=== PATIENT | male | born 1950 | race Hispanic/Latino ===

== ENCOUNTER → 2018-09-09 | Outpatient (CLI) | payer MEDICARE ==
[~2018-09-09] MED LIST: MULTIVITAMINS1 EAC7 PO; TAMSULOSIN HCL0.4 MG PO
--- NOTE | 2018-09-09 11:49 | Diagnostic Imaging Report ---
Exam: Abdominal film Clinical History: Calculus of kidney Comparison: None. DISCUSSION: Partially visualized ventriculoperitoneal shunt catheter terminates over the right upper quadrant of the abdomen. Bowel gas pattern shows no dilated, air-filled loops of bowel. No mass effect or organomegaly. Radiopaque catheter projects over the urinary bladder. There are multiple coarse pelvic calcifications which may reflect phleboliths or bladder calculi. No calcifications project over the renal shadows or expected ureteral courses. Regional skeletal structures are intact. IMPRESSION: Urinary bladder catheter in position as above. Multiple pelvic phleboliths versus bladder calculi. No calcifications project over the renal shadows. Signed by: Dr. Wesley Recio M.D. on 09/09/2018 11:45 AM
== END ==
LOC: RAD 10:59
PROVIDERS: ATTEND Urology
DX: N20.0 Calculus of kidney (principal)
CPT/HCPCS: 74018

== ENCOUNTER → 2018-10-01 | Outpatient (CLI) | payer MEDICARE ==
--- NOTE | 2018-10-01 14:40 | Diagnostic Imaging Report ---
Exam: Abdominal film Clinical History: Calculus of kidney Comparison: KUB 09/09/18. DISCUSSION: Partially visualized ventriculoperitoneal shunt catheter terminates over the right upper quadrant of the abdomen. No evidence of kinking. Non-obstructive bowel gas pattern. There are multiple coarse pelvic calcifications. Some of the calcifications are no longer present and additional ones have changed position from the prior KUB on 09/09/18. No calcifications project over the renal shadows or expected course of the ureters. No acute bony findings. IMPRESSION: Multiple calcifications projecting over the pelvis some of which have changed position from the prior study and others of which are resolved. Findings likely reflect bladder calculi and possibly additional pelvic phleboliths. No calcifications project over the renal shadows. 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 Signed by: Dr. Tiffany Elias MD on 10/01/2018 2:36 PM
== END ==
LOC: RAD 13:07
PROVIDERS: ATTEND Urology
DX: N20.0 Calculus of kidney (principal)
CPT/HCPCS: 74018

== ENCOUNTER → 2018-12-24 | Day surgery (SDC) | payer MEDICARE ==
[2018-12-22 10:37] LABS: BASOPHILS % 0.4 % (0.0-1.0); EOSINOPHILS # (AUTO) 0.2 (0.0-0.4); EOSINOPHILS % 2.8 % (0.0-6.0); HEMATOCRIT 40.3 % (38.2-49.6); HEMOGLOBIN 13.1 g/dL (14.0-18.0); LYMPHOCYTES # (AUTO) 2.2 (1.0-3.2); LYMPHOCYTES % 28.3 % (18.0-39.1); MEAN CORPUSCULAR HEMOGLOBIN 28.4 pg (28-32); MEAN CORPUSCULAR HGB CONC 32.5 g/dL (31-35); MEAN CORPUSCULAR VOLUME 87.2 fL (81-99); MONOCYTES # (AUTO) 0.7 (0.2-0.8); MONOCYTES % 8.3 % (4.4-11.3); NEUTROPHILS # (AUTO) 4.7 (2.1-6.9); NEUTROPHILS % 59.6 % (38.7-80.0); PLATELET COUNT 239 x10e3/uL (140-360); RED BLOOD COUNT 4.62 x10e6/uL (4.3-5.7); RED CELL DISTRIBUTION WIDTH 13.1 % (11.7-14.4)
--- NOTE | 2018-12-22 11:15 | Diagnostic Imaging Report ---
EXAMINATION: CHEST 2 VIEWS INDICATION: Pre-admit. COMPARISON: None FINDINGS: TUBES and LINES: Partially seen right-sided HELMINTHOLOGIST shunt overlying the right hemithorax and coursing into the upper abdomen which appears intact without evidence of kinking or discontinuity. LUNGS: Lungs are well inflated. Mild patchy right basilar opacity, likely atelectasis. There is no evidence of pneumonia or pulmonary edema. PLEURA: No pleural effusion or pneumothorax. HEART AND MEDIASTINUM: The cardiomediastinal silhouette is unremarkable. Atherosclerotic calcification of the aortic arch. BONES AND SOFT TISSUES: There is mild age indeterminate loss of vertebral body height loss at the T12 level. UPPER ABDOMEN: No free air under the diaphragm. IMPRESSION: Clear lungs. Mild age indeterminate loss of vertebral body height at the T12 level. Signed by: Dr. Tiffany Elias MD on 12/22/2018 11:12 AM
[~2018-12-24] MED LIST changes: +CEFTRIAXONE SOD 1 GM/NS 50 ML 50 ML IV ONE; +DEXAMETHASONE SOD PHOS INJ 4 MG/ML VIAL ONE; +EPHEDRINE SULFATE INJ 50 MG/10 ML SYR ONE; +FENTANYL CITRATE/PF 100MCG/2 ML INJ ONE; +IOPAMIDOL 610MG/1ML 300 MG/ML VIAL IV ONE; +LIDOCAINE HCL 2% LOCAL INJ 5 ML SDV VIAL INJ ONE; +LINZESS; +METRONIDAZOLE250 MG PO; +MORPHINE SULFATE INJ 4 MG/ML INJ 1ML ONE; +NEXIUM40 MG PO; +ONDANSETRON HCL INJ 2MG/ML 2ML 2 MG/ML VIAL ONE; +PRAVASTATIN SOD10 MG; +PRAVASTATIN SOD80 MG PO; +PROPOFOL IV EMULSION 10 MG/ML 20 ML VIAL ONE; +SEVOFLURANE INHAL SOLN 250 ML PEN BTL ONE
--- OUTSIDE RECORDS SUMMARY | 2018-12-24 06:26 | XMS REPORT | Clinical Summary ---
Author Author [facility] Organization [facility] Address Unknown Phone Unavailable Care Team Providers Care Communications Professional Name Role Phone Theo Linder MD PCP Allergies No Known Allergies Medications End Date Status Medication Sig Dispensed Refills Start Date Active pravastatin (PRAVACHOL) TK 1 T PO QPM 1 80 MG tablet 8 Active esomeprazole (NexIUM) 40 TK 1 C PO QD 3 MG capsule 30 MINUTES 8 BEFORE FIRT MEAL Active acetaminophen-codeine TK 1 T PO Q 6 0 (TYLENOL WITH CODEINE #3) H PRN P 8 300-30 mg per tablet 09/01/2018 Discontinued bisacodyl (DULCOLAX) 5 mg TK 4 T PO 0 EC tablet ONCE UTD 8 Active Problems Problem Noted Date Calculus of ureter 09/22/2018 Encounters Care Team Description Date Type Specialty Edmond Resendez MD EXTRACORPOREAL SHOCKWAVE LITHOTRIPSY (ESWL) 09/01/2018 Surgery General Surgery Melania Frank 09/01/2018 Anesthesia General Surgery Event Edmond Resendez MD Preoperative testing 09/01/2018 Hospital General Surgery Encounter Edmond Resendez MD 08/27/2018 Hospital Radiology Encounter Zenia Maldonado MD Schatte, Edward C., MD Preoperative testing (Primary Dx); Preop testing 08/27/2018 Pre-Admit Pre-Admission Testing Testing Appointment after 12/23/2017 Family History Medical History Relation Name Comments Diabetes Mother Relation Name Status Comments Mother Social History Date Tobacco Use Types Packs/Day Years Used Never Smoker Smokeless Tobacco: Never Used Alcohol Use Drinks/Week oz/Week Comments No Sex Assigned at Date Recorded Not on file Industry Job Start Date Occupation Not on file Not on file Not on file Travel End Travel History Travel Start No recent travel history available. Last Filed Vital Signs Time Taken Vital Sign Reading 09/01/2018 3:40 PM MEDICAL COORDINATOR [employer] USE Blood Pressure 150/77 09/01/2018 3:40 PM MEDICAL COORDINATOR [employer] USE Pulse 79 09/01/2018 2:30 PM MEDICAL COORDINATOR [employer] USE Temperature 37.2 C (99 F) 09/01/2018 3:40 PM MEDICAL COORDINATOR [employer] USE Respiratory Rate 20 09/01/2018 3:40 PM MEDICAL COORDINATOR [employer]STIC[employer] USE Oxygen Saturation 96% - Inhaled Oxygen - Concentration 09/01/2018 11:14 AM MEDICAL COORDINATOR [employer] USE Weight 83.2 kg (183 lb 7 oz) 09/01/2018 11:14 AM MEDICAL COORDINATOR [employer] USE Height 172.7 cm (5' 8") 09/01/2018 11:14 AM MEDICAL COORDINATOR [employer] USE Body Mass Index 27.89 Plan of Treatment Health Maintenance Due Date Last Done Comments COLON CANCER SCREENING 2001 SHINGLES VACCINES (#1) 2001 65+ PNEUMOCOCCAL VACCINE 2016 (1 of 2 - PCV13) PNEUMOCOCCAL 2016 POLYSACCHARIDE VACCINE AGE 65 AND OVER INFLUENZA VACCINE 05/26/2018 Procedures Comments Procedure Name Priority Date/Time Associated Diagnosis [place] AN ELECTIVE Routine 09/01/2018 SUPRAGLOTTIC AIRWAY 1:09 PM MEDICAL COORDINATOR PESTIC[employer] USE Procedure Note - Rene Stinson - 09/01/2018 1:09 PM MEDICAL COORDINATOR PESTIC[employer] USE Airway Date/Time: 09/01/2018 12:58 PM Performed by: RENE STINSON Authorized by: MALVIN WEBSTER Location: OR Urgency: Elective Difficult Airway: No Anesthesio logist: MALVNI WEBSTER Resident/C RNA/AA: RENE STINSON Performed by: resident/C RNA/AA Preoxygena carlyn with 100% O2: Yes Mask Ventilatio n: Not attempted Final Airway Type: Supraglott ic airway Final LMA: Unique LMA Size: 5 Number of Attempts at Approach: 1 EXTRACORPOREAL SHOCKWAVE 09/01/2018 Calculus of left ureter LITHOTRIPSY (ESWL) 1:00 PM MEDICAL COORDINATOR PE[employer]IC[employer] USE Special Needs NEXTMED XR CHEST 2 VW Routine 08/27/2018 Preoperative testing 12:21 PM CDT CBC HEMOGRAM Routine 08/27/2018 Preoperative testing 11:40 AM CDT ECG 12-LEAD Routine 08/27/2018 Preoperative testing 11:32 AM CDT after 12/23/2017 Results * XR Chest 2 Vw (08/27/2018 12:21 PM CDT) Narrative Performed At EXAMINATION:[facility]ST [facility] CLINICAL HISTORY:Z01.818 Encounter for other preprocedural examination, preop COMPARISON: FINDINGS: The heart size is within normal limits. The mediastinum is unremarkable the lungs are clear. Degenerative changes of the thoracic spine are present. There is a peritoneal shunt catheter projecting over the medial right hemithorax. Degenerative changes of the thoracic spine are present IMPRESSION: 1. Chronic scarring at the bases. 2. Right-sided ventriculoperitoneal shunt catheter noted [id number] Procedure Note Interface, Radiology Results Incoming - 08/27/2018 1:39 PM CDT EXAMINATION: XR CHEST 2 VW CLINICAL HISTORY: Z01.818 Encounter for other preprocedural examination, preop COMPARISON: FINDINGS: The heart size is within normal limits. The mediastinum is unremarkable the lungs are clear. Degenerative changes of the thoracic spine are present. There is a peritoneal shunt catheter projecting over the medial right hemithorax. Degenerative changes of the thoracic spine are present IMPRESSION: 1. Chronic scarring at the bases. 2. Right-sided ventriculoperitoneal shunt catheter noted [id number] Performing Organization Address City/State/Zipcode Phone Number [facility] [address] [place] [address] * CBC hemogram (08/27/2018 11:40 AM CDT) WBC 9.24 4.50 - 11.00 k/uL [facility] DEPARTMENT OF PATHOLOGY AND GENOMIC MEDICINE RBC 4.55 4.40 - 6.00 m/uL [facility] DEPARTMENT OF PATHOLOGY AND GENOMIC MEDICINE HGB 12.9 (L) 14.0 - 18.0 g/dL [facility] DEPARTMENT OF PATHOLOGY AND GENOMIC MEDICINE HCT 40.9 (L) 41.0 - 51.0 % [facility] DEPARTMENT OF PATHOLOGY AND GENOMIC MEDICINE MCV 89.9 82.0 - 100.0 fL [facility] DEPARTMENT OF PATHOLOGY AND GENOMIC MEDICINE MCH 28.4 27.0 - 34.0 pg [facility] DEPARTMENT OF PATHOLOGY AND GENOMIC MEDICINE MCHC 31.5 31.0 - 37.0 g/dL [facility] DEPARTMENT OF PATHOLOGY AND GENOMIC MEDICINE RDW - SD 40.2 37.0 - 55.0 fL [facility] DEPARTMENT OF PATHOLOGY AND GENOMIC MEDICINE MPV 10.6 8.8 - 13.2 fL [facility] DEPARTMENT OF PATHOLOGY AND GENOMIC MEDICINE Platelet count 216 150 - 400 k/uL [facility] DEPARTMENT OF PATHOLOGY AND GENOMIC MEDICINE Nucleated RBC 0.00 /100 WBC [facility] DEPARTMENT OF PATHOLOGY AND GENOMIC MEDICINE Specimen Blood Performing Organization Address City/State/[facility] Phone Number [address] [place] [address] PATHOLOGY AND GENOMIC MEDICINE * ECG 12 lead (08/27/2018 11:32 AM CDT) Ventricular rate 57 [facility] Atrial rate 57 [facility] [place] interval 132 [facility] QRSD interval 84 [facility] QT interval 422 [facility] QTC interval 410 [facility] P axis 1 77 [facility] QRS axis 1 48 [facility] T wave axis 63 [facility] EKG impression Sinus bradycardia-Otherwise [facility] MUSE normal ECG-- Performing Organization Address City/[facility] Phone Number [facility] MUSE [address] [place] [address] after 12/23/2017 Insurance Payer Benefit Subscriber ID Type Phone Address Plan / Group HU[employer]NA MEDICARE HUMANA HMO xxxxxxxxx HMO GOLD PLUS MEDICARE Advance Directives Patient has advance care planning documents on file. For more information, jennifer e contact: Truman Degroot [address] [place] [address]
--- OUTSIDE RECORDS SUMMARY | 2018-12-24 06:27 | XMS REPORT | Summary of Care ---
Author Author [facility] Organization [facility] Address Unknown Phone Unavailable Encounter [facility] Suresh(DEBRA) [id number] Date(s): 11/03/17 - 11/03/17 [id number] [place] [address]- Discharge Disposition: Home or Self Care Attending Physician: Prasanth Morris MD Referring Physician: Prasanth Morris MD Vital Signs 1 2 3 Most recent to oldest [Reference Range]: 68 cm (11/03/17 10:07 AM) 172.72 cm (11/02/17 8:35 AM) Height 97.6 DegF (11/03/17 10:09 AM) 97.7 DegF (11/02/17 8:40 AM) Temperature Oral [96.4-99.1 DegF] 157/74 mmHg *HI* (11/03/17 1:30 PM) 168/79 mmHg *HI* (11/03/17 1:15 PM) 151/70 mmHg *HI* (11/03/17 1:00 PM) Blood Pressure [90-140/60-90 mmHg] 18 BRMIN (11/03/17 1:30 PM) 16 BRMIN (11/03/17 1:15 PM) 16 BRMIN (11/03/17 1:00 PM) Respiratory Rate [14-20 BRMIN] 64 bpm (11/03/17 1:30 PM) 66 bpm (11/03/17 1:15 PM) 62 bpm (11/03/17 1:00 PM) Peripheral Pulse Rate [60-100 bpm] 84.091 kg (11/03/17 10:07 AM) 84.091 kg (11/02/17 8:35 AM) Weight 181.86 m2 (11/03/17 10:07 AM) 28.19 m2 (11/02/17 8:35 AM) Body Mass Index Problem List No data available for this section Allergies, Adverse Reactions, Alerts Substance Reaction Severity Status NKDA Active Medications No data available for this section Results No data available for this section Immunizations No data available for this section Procedures No data available for this section Social History Social History Type Response Smoking Status Never smoker; Exposure to Tobacco Smoke None; Cigarette Smoking Last 365 Days No; Reg Smoking Cessation Counseling No entered on: 10/12/17 Assessment and Plan No data available for this section
--- OUTSIDE RECORDS SUMMARY | 2018-12-24 06:27 | XMS REPORT | Continuity of Care Document ---
Author Author [facility] Interface Address Unknown Phone Unavailable Problems Problem Status Onset Date Classification Date Reported Comments Source ACUTE PYELONEPHRITIS, RENAL LESION Active 10/15/2018 [facility] DC SENT/ ABD PAIN Active 10/15/2018 [facility] normal pressure hydrocephalus 02/10/2018 03/18/2018 [facility] N/A Active 11/26/2017 [facility] G91.9 Active 11/25/2017 [facility] Hydrocephalus, unspecified 11/11/2017 02/09/2018 [facility] Discharge Diagnosis: Peritonsillar abscess 10/12/2017 10/15/2017 [facility] SORE THROAT Active 10/11/2017 [facility] DX: G91.2=(IDIOPATHIC) NORMAL PRESSURE H Active 12/24/2016 [facility] DX; H90.3=SENSORINEURAL HEARING LOSS, BI Active 10/23/2016 [facility] Acid reflux Resolved Problem 03/18/2018 [facility] Other amnesia 02/09/2018 [facility] Disorder of trigeminal nerve, unspecified 03/18/2018 [facility] Essential hypertension 03/18/2018 [facility] Personal history of nicotine dependence 02/09/2018 [facility] Elevated white blood cell count, unspecified 03/18/2018 [facility] Benign prostatic hyperplasia without lower urinary tract symptoms 03/18/2018 [facility] Spondylosis, unspecified 03/18/2018 [facility] Encounter for immunization 03/18/2018 [facility] CONDUCTIVE HEARING LOSS, BILATERAL Active [facility] (IDIOPATHIC) NORMAL PRESSURE HYDROCEPHAL Active [facility] HYDROCEPHALUS, UNSPECIFIED Active [facility] Medications Medication Details Route Status Patient Instructions Ordering Provider Order Date Source Docusate Sodium 100 MG Oral Capsule [Colace] 100 mg=1 cap, PO, BID, # 20 cap, 0 Refill(s) Active 12/10/2017 [facility] Acetaminophen 300 MG / Codeine Phosphate 30 MG Oral Tablet [Tylenol with Codeine #3] 1 tab, PO, Q6H, PRN Pain, X 10 day, # 40 tab, 0 Refill(s), given to patient No Longer Active 12/10/2017 [facility] metoprolol tartrate 25 mg, 1 tab, Route: PO, Drug form: TAB, Q12H, Dosing Weight 88.182, kg, Start date: 12/09/17 23:00:00 NAIL TECHNICIAN, Duration: 30 day, Stop date: 01/08/18 21:00:00 CDTNotes: (Same as: Lopressor) No Longer Active 12/10/2017 [facility] Saline Flush 0.9% 10 ml, Route: IVP, Drug Form: INJ, Dosing Weight 88.182, kg, Q12H, Start date: 12/09/17 21:00:00 NAIL TECHNICIAN, Duration: 30 day, Stop date: 01/08/18 9:00:00 CDTNotes: (Same as: BD Posiflush) No Longer Active 12/10/2017 [facility] Lipitor 40 mg, 1 tab, Route: PO, Drug form: TAB, Bedtime, Dosing Weight 88.182, kg, Start date: 12/09/17 21:00:00 NAIL TECHNICIAN, Duration: 30 day, Stop date: 01/07/18 21:00:00 CDTNotes: (Same as: Lipitor) No Longer Active 12/10/2017 [facility] ceFAZolin (SCIP) + sterile water 20 mL 2 gm, Route: IVPB, ABXQ8H, Dosing Weight 88.182, kg, Start date: 12/09/17 18:00:00 NAIL TECHNICIAN, Duration: 3 doses or times, Stop date: 12/10/17 10:00:00 NAIL TECHNICIAN, ABX Indication: Surgical ProphylaxisNotes: Cefazolin 2gm - push each vial over 3 minutes for a total of 6 minutes. Give within one hour of reconstitution Reconstitute Cefazolin 1 g vial: 10 mL of SWFI Shake immediately & vigorously pharmacy re-entry for dosing time adjustment No Longer Active 12/10/2017 [facility] Hydralazine 20 mg, 1 mL, Route: IVP, Drug form: INJ, Q4H, Dosing Weight 88.182, kg, PRN Elevated BP, Start date: 12/09/17 17:47:00 NAIL TECHNICIAN, Duration: 30 day, Stop date: 01/08/18 17:46:00 CDTNotes: (Same as: Apresoline) Push over 5 minutes No Longer Active 12/09/2017 [facility] Metoprolol 5 mg, 5 mL, Route: IVP, Drug form: INJ, ONCE, Dosing Weight 88.182, kg, Start date: 12/09/17 16:06:00 NAIL TECHNICIAN, Stop date: 12/09/17 16:06:00 CSTNotes: (Same as: Lopressor) Push over 2 minutes Inactive 12/09/2017 [facility] Cefazolin 2 gm, Route: IVPB, Drug form: INJ, Q8H, Dosing Weight 88.182, kg, Start date: 12/09/17 16:00:00 NAIL TECHNICIAN, Duration: 3 doses or times, Stop date: 12/10/17 8:00:00 NAIL TECHNICIAN, ABX Indication: Surgical Prophylaxis Inactive 12/09/2017 [facility] Sodium Chloride 0.9% IV 250 mL, Route: IVPB, Start date: 12/09/17 15:54:00 NAIL TECHNICIAN, Duration: 30 day, Stop date: 01/08/18 16:53:00 CDT, PRN Line Flush No Longer Active 12/09/2017 [facility] Saline Flush 0.9% 10 ml, Route: IVP, Drug Form: INJ, Dosing Weight 88.182, kg, PRN, PRN Line Flush, Start date: 12/09/17 11:23:00 NAIL TECHNICIAN, Duration: 30 day, Stop date: 01/08/18 12:22:00 CDTNotes: (Same as: BD Posiflush) No Longer Active 12/09/2017 [facility] Acetaminophen 325 MG / Hydrocodone Bitartrate 10 MG Oral Tablet [[place] 10/325] 1 tab, Route: PO, Drug Form: TAB, Dosing Weight 88.182, kg, Q4H, PRN Pain Score 4-6, Start date: 12/09/17 10:52:00 NAIL TECHNICIAN, Duration: 30 day, Stop date: 01/08/18 10:51:00 CDTNotes: Do not exceed 4gm/day of acetaminophen. (Same as: [place] 325/10) Inactive 12/09/2017 [facility] 1/2NS + KCL 20mEq/L 1000ml (Premix) 1,000 mL 1,000 mL, Rate: 75 ml/hr, Infuse over: 13.3 hr, Route: IV, Dosing Weight 88.182 kg, Total Volume: 1,000, Start date: 12/09/17 10:52:00 NAIL TECHNICIAN, Duration: 30 day, Stop date: 01/08/18 10:51:00 CDT, 2.08, [id number]: PREMIX IV - Do Not Alter WASTE: F/P - Sink; E - Municipal Trash Bin No Longer Active 12/09/2017 [facility] Zofran 4 mg, 1 tab, Route: PO, Drug form: TAB, Q8H, Dosing Weight 88.182, kg, PRN Nausea, Start date: 12/09/17 10:52:00 NAIL TECHNICIAN, Duration: 30 day, Stop date: 01/08/18 10:51:00 CDTNotes: (Same as: Zofran) No Longer Active 12/09/2017 [facility] Morphine 2 mg, 0.5 mL, Route: IVP, Drug form: SOLN, Q2H, Dosing Weight 88.182, kg, PRN Pain Score 7-10, Start date: 12/09/17 10:52:00 NAIL TECHNICIAN, Duration: 30 day, Stop date: 01/08/18 10:51:00 CDTNotes: (Same as: MORPhine Sulfate) No Longer Active 12/09/2017 [facility] ondansetron (ANES) Route: IV, Drug form: INJ, ONCE, Stop date: 12/09/17 10:33:00 NAIL TECHNICIAN Inactive 12/09/2017 [facility] glycopyrrolate (ANES) Route: IV, Drug form: INJ, ONCE, Stop date: 12/09/17 10:33:00 NAIL TECHNICIAN Inactive 12/09/2017 [facility] neostigmine (ANES) Route: IV, Drug form: INJ, ONCE, Stop date: 12/09/17 10:33:00 NAIL TECHNICIAN Inactive 12/09/2017 [facility] acetaminophen (ANES) Route: IV, Drug form: INJ, ONCE, Stop date: 12/09/17 10:18:00 NAIL TECHNICIAN Inactive 12/09/2017 [facility] propofol (ANES) Route: IV, Drug form: INJ, ONCE, Stop date: 12/09/17 9:13:00 NAIL TECHNICIAN Inactive 12/09/2017 [facility] fentaNYL (ANES) Route: IV, Drug form: INJ, ONCE, Stop date: 12/09/17 9:13:00 NAIL TECHNICIAN Inactive 12/09/2017 [facility] metoprolol (ANES) Route: IV, Drug form: INJ, ONCE, Stop date: 12/09/17 9:13:00 NAIL TECHNICIAN Inactive 12/09/2017 [facility] rocuronium (ANES) Route: IV, Drug form: INJ, ONCE, Stop date: 12/09/17 9:13:00 NAIL TECHNICIAN Inactive 12/09/2017 [facility] ceFAZolin (ANES) Route: IV, Drug form: INJ, ONCE, Stop date: 12/09/17 9:13:00 NAIL TECHNICIAN Inactive 12/09/2017 [facility] dexamethasone (ANES) Route: IV, Drug form: INJ, ONCE, Stop date: 12/09/17 9:13:00 NAIL TECHNICIAN Inactive 12/09/2017 [facility] lidocaine (ANES) Route: IV, Drug form: INJ, ONCE, Stop date: 12/09/17 9:13:00 NAIL TECHNICIAN Inactive 12/09/2017 [facility] Glycopyrrolate 0.2 mg, 1 mL, Route: IVP, Drug form: INJ, Q5Min, Dosing Weight 88.182, kg, PRN Bradycardia, Start date: 12/09/17 8:44:00 NAIL TECHNICIAN, Duration: 3 doses or times, Stop date: Limited # of timesNotes: (Same as: Leif) Inactive 12/09/2017 [facility] Ondansetron 4 mg, 2 mL, Route: IVP, Drug form: INJ, ONCE, Dosing Weight 88.182, kg, PRN Nausea & Vomiting, Start date: 12/09/17 8:44:00 CSTNotes: (Same as: Axel) MEDICATION WASTE Product Size: 4 mg Product Wasted: ___ mg Inactive 12/09/2017 [facility] Dexamethasone 4 mg, 1 mL, Route: IVP, Drug form: INJ, ONCE, Dosing Weight 88.182, kg, PRN Nausea & Vomiting, Start date: 12/09/17 8:44:00 CSTNotes: Concentration: 4mg/ml Inactive 12/09/2017 [facility] Morphine 4 mg, 2 mL, Route: IVP, Drug form: INJ, Q5Min, Dosing Weight 88.182, kg, PRN Pain Score 7-10, Start date: 12/09/17 8:44:00 NAIL TECHNICIAN, Duration: 3 doses or times, Stop date: Limited # of timesNotes: (Same a s:MORPhine Sulfate) Inactive 12/09/2017 [facility] Hydromorphone 0.5 mg, 0.5 mL, Route: IVP, Drug form: INJ, Q5Min, Dosing Weight 88.182, kg, PRN Pain Score 7-10, Start date: 12/09/17 8:44:00 NAIL TECHNICIAN, Duration: 4 doses or times, Stop date: Limited # of times Inactive 12/09/2017 [facility] Naloxone 0.4 mg, 1 mL, Route: IVP, Drug form: INJ, Q2MIN, Dosing Weight 88.182, kg, PRN Narcotic Reversal, Start date: 12/09/17 8:44:00 NAIL TECHNICIAN, Duration: 8 doses or times, Stop date: Limited # of timesNotes: Same as Narcan Inactive 12/09/2017 [facility] Flumazenil 0.2 mg, 2 mL, Route: IVP, Drug form: INJ, PRN, Dosing Weight 88.182, kg, PRN Benzodiazepine Reversal, Initial dose, Start date: 12/09/17 8:44:00 NAIL TECHNICIAN, Duration: 30 day, Stop date: 01/08/18 9:43:00 CDT Notes: (Same as: Romazicon) Inactive 12/09/2017 [facility] Albuterol 0.83 MG/ML Inhalant Solution 2.49 mg, 3 mL, Route: NEB, Drug form: SOLN, Q20Min, Dosing Weight 88.182, kg, PRN Wheezing, Priority: STAT, Start date: 12/09/17 8:44:00 NAIL TECHNICIAN, Duration: 30 day, Stop date: 01/08/18 9:43:00 CDTNotes: SEE RT DOCUMENTATION (Same as: Proventil) Inactive 12/09/2017 [facility] Atropine 0.2 mg, 0.5 mL, Route: IVP, Drug form: INJ, Q5Min, Dosing Weight 88.182, kg, PRN Other -See Comment, as needed; for symptomatic pulse rate Notes: MEDICATION WASTE Product Size: 8 mg Product Wasted: ___ mg Inactive 12/09/2017 [facility] Ephedrine 5 mg, 1 mL, Route: IVP, Drug form: INJ, Q5Min, Dosing Weight 88.182, kg, PRN Low Blood Pressure, Start date: 12/09/17 8:44:00 NAIL TECHNICIAN, Duration: 30 day, Stop date: 01/08/18 9:43:00 CDTNotes: final concentration 5 mg/mL Inactive 12/09/2017 [facility] Diphenhydramine 12.5 mg, 0.25 mL, Route: IVP, Drug form: INJ, Q6H, Dosing Weight 88.182, kg, PRN Itching, Start date: 12/09/17 8:44:00 NAIL TECHNICIAN, Duration: 30 day, Stop date: 01/08/18 8:43:00 CDTNotes: (Same as: Benadryl) Inactive 12/09/2017 [facility] Racepinephrine 11.25 mg, 0.5 mL, Route: NEB, Drug Form: SOLN, Dosing Weight 88.182, kg, PRN, PRN Shortness of breath, Start date: 12/09/17 8:44:00 NAIL TECHNICIAN, Duration: 30 day, Stop date: 01/08/18 9:43:00 CDTNotes: (racepinephrine *2.25% inh 0.5ml SOLN) (Same as:S2) Inactive 12/09/2017 [facility] Hydralazine 10 mg, 0.5 mL, Route: IVP, Drug form: INJ, Q20Min, Dosing Weight 88.182, kg, PRN Elevated BP, Start date: 12/09/17 8:44:00 NAIL TECHNICIAN, Duration: 2 doses or times, Stop date: Limited # of timesNotes: (Same as: Apresoline) Push over 5 minutes Inactive 12/09/2017 [facility] esmolol 10 mg, 1 mL, Route: IVP, Drug form: INJ, Q5Min, Dosing Weight 88.182, kg, PRN Other -See Comment, Start date: 12/09/17 8:44:00 NAIL TECHNICIAN, Duration: 5 doses or times, Stop date: Limited # of timesNotes: (Same as: Brevibloc) Inactive 12/09/2017 [facility] Metoprolol 1 mg, 1 mL, Route: IVP, Drug form: INJ, Q5Min, Dosing Weight 88.182, kg, PRN Other -See Comment, Start date: 12/09/17 8:44:00 NAIL TECHNICIAN, Duration: 5 doses or times, Stop date: Limited # of timesNotes: (Same as: Lopressor) Push over 2 minutes Inactive 12/09/2017 [facility] Oxycodone 5 mg, 5 mL, Route: NG, Drug form: LIQ, Q4H, Dosing Weight 88.182, kg, PRN Pain Score 4-6, Start date: 12/09/17 8:44:00 NAIL TECHNICIAN, Duration: 30 day, Stop date: 01/08/18 8:43:00 CDTNotes: (Same as: 'Roxicodone) Inactive 12/09/2017 [facility] Labetalol 10 mg, 2 mL, Route: IVP, Drug form: INJ, Q5Min, Dosing Weight 88.182, kg, PRN Elevated BP, Start date: 12/09/17 8:44:00 NAIL TECHNICIAN, Duration: 5 doses or times, Stop date: Limited # of timesNotes: (Same as: Paul ordoñez Trandate) Push over 2 minutes Give bolus over 2-3 minutes. Inactive 12/09/2017 [facility] Isolyte S PH 7.4 (ANES) 1000 mL Route: IV, Total Volume: 1,000, Start date: 12/09/17 8:07:00 NAIL TECHNICIAN, Stop date: 12/09/17 9:07:00 NAIL TECHNICIAN Inactive 12/09/2017 [facility] clindamycin 300 mg oral capsule 300 mg=1 cap, PO, Q6H, X 10 day, # 40 cap, 0 Refill(s) Active 10/12/2017 [facility] Acetaminophen 300 MG / Codeine Phosphate 30 MG Oral Tablet [Tylenol with Codeine #3] 1 - 2 tab, PO, Q4H, PRN Pain, X 2 day, # 20 tab, 0 Refill(s) No Longer Active 10/12/2017 [facility] Clindamycin 600 mg, Route: IVPB, ONCE, Dosing Weight 86.364, kg, Priority: STAT, Start date: 10/12/17 2:34:00 NAIL TECHNICIAN, Stop date: 10/12/17 2:34:00 NAIL TECHNICIAN, ABX Indication: Skin/Soft Tissue Infection Inactive 10/12/2017 [facility] Dexamethasone 10 mg, Route: IVP, ONCE, Dosing Weight 86.364, kg, Priority: STAT, Start date: 10/12/17 2:33:00 NAIL TECHNICIAN, Stop date: 10/12/17 2:33:00 NAIL TECHNICIAN Inactive 10/12/2017 [facility] Zofran 4 mg, Route: IVP, Drug form: INJ, ONCE, Dosing Weight 86.364, kg, Priority: STAT, Start date: 10/12/17 2:32:00 NAIL TECHNICIAN, Stop date: 10/12/17 2:32:00 NAIL TECHNICIAN Inactive 10/12/2017 [facility] Morphine 4 mg, Route: IVP, ONCE, Dosing Weight 86.364, kg, Priority: STAT, Start date: 10/12/17 2:32:00 NAIL TECHNICIAN, Stop date: 10/12/17 2:32:00 NAIL TECHNICIAN Inactive 10/12/2017 [facility] Sodium Chloride 0.9% (Bolus) IV 1,000 mL, Infuse Over: 1 hr, Route: IV, ONCE, Priority: STAT, Dosing Weight 86.364 kg, Start date: 10/12/17 2:09:00 NAIL TECHNICIAN, Stop date: 10/12/17 2:09:00 NAIL TECHNICIAN Inactive 10/12/2017 [facility] Allergies, Adverse Reactions, Alerts Substance Category Reaction Severity Reaction type Status Date Reported Comments Source NKFA Assertion Drug allergy Active [facility] Immunizations Immunization Date Given Site Status Last Updated Comments Source pneumococcal 13-valent vaccine 12/10/2017 Right Thigh completed [facility] influenza virus vaccine, inactivated 12/10/2017 Right Deltoid completed [facility] Results Order Name Results Value Reference Range Date Interpretation Comments Source ED Abdomen/Pelvis IV contrast only CT ED Abdomen/Pelvis IV contrast only CT EXAM: CT ABDOMEN PELVIS WITH CONTRAST CLINICAL INDICATION: 68 years old Male with abdominal pain. TECHNIQUE: GI CONTRAST: None. IV CONTRAST: 100 cc of Omnipaque-300 Axial post-contrast images were obtained from the lower chest to the symphysis pubis. Coronal and sagittal reconstruction images were performed. CT imaging performed at this location utilizes radiation dose optimization techniques which include one or more of the following: -Automated exposure control -Adjustment of the mA and/or kV according to patient size -Use of iterative reconstruction technique CT Radiation Dose DLP 1160.76 mGy-cm COMPARISON: None. FINDINGS: LOWER CHEST: Bibasilar atelectatic changes. Calcified granuloma in the right lower lobe. Normal size of the heart is noted. SOLID ORGANS: 4 mm right hepatic lobe hypodensity, too small to characterize. No intrahepatic biliary ductal dilatation is seen. No calcified gallstone is noted. The spleen, pancreas, and adrenal glands are normal in appearance. There is a 2.8 cm well-circumscribed low-density focus in the left upper pole with significant adjacent perinephric stranding. Both kidneys demonstrate normal corticomedullary phase of enhancement. A 4.4 cm left interpolar region cyst is noted. A couple subcentimeter hypodense foci are noted in the right kidney which are too small to characterize, though statistically likely also represent cysts. There is a 10 mm left distal ureteral stone without evidence of left hydronephrosis. BOWEL: The small bowel and colon are normal in caliber without wall thickening. A normal appendix is identified. PERITONEUM: No free intraperitoneal air. Ventriculoperitoneal shunt catheter tubing noted descending in the subcutaneous fat of the right anterior abdomen, entering the peritoneum in the mid abdomen, and terminating in the right lower quadrant. Trace free fluid in the pelvis. Small fat-containing left inguinal hernia. 3.2 x 7.6 cm fat-containing left posterolateral hernia. RETROPERITONEUM: Normal caliber of the abdominal aorta is noted. Mild atherosclerotic plaque in the aorta. Retroaortic left renal vein. No lymphadenopathy is seen. PELVIS: 6 mm bladder stone noted near the right ureterovesicular junction. Additional 6 mm bladder stone noted at the ureteral orifice. Diffuse bladder wall thickening. Organs of reproduction are unremarkable. MUSCULOSKELETAL: No acute osseous abnormality is seen. No destructive lytic or blastic osseous lesion is noted. Degenerative changes in the spine. Mild convex right scoliosis of the lumbar spine. IMPRESSION: 1. Left renal upper pole 2.8 cm low-density collection with significant adjacent perinephric stranding. Findings may represent a ruptured cyst, though an infectious/inflammatory etiology such as an abscess or superinfected cyst is not excluded. 2. Additional bilateral renal cysts. 3. Large distal left ureteral stone, though without significant hydronephrosis. 4. Diffuse bladder wall thickening. Differential considerations include chronic outlet obstruction, cystitis, and posttreatment changes. Consider correlation with urinalysis. Multiple bladder stones are present. 5. Fat-containing left posterior lateral hernia. 6. Ventriculoperitoneal shunt catheter. 7. Tiny hepatic hypodensity, too small to characterize. SL: [id number] 10/15/2018 - - Read by: Godfrey Arriaga MD Dictated Date/time: 10/15/18 17:14 Electronically Signed by: Godfrey Arriaga MD 10/15/18 17:37 FINAL REPORT [facility] Chest 1view DX Chest 1view DX Clinical Indication: - cough Comparison: None FINDINGS: The cardiomediastinal silhouette is within normal limits for appearance. No focal pulmonary consolidation, pneumothorax or pleural effusion. Midline trachea. Trace linear opacities present at the left lung base. Radiopaque catheter tubing identified over the visualized portions of the right lower neck, right hemithorax, and right upper abdominal quadrant, consistent with ventriculoperitoneal shunt catheter tubing. IMPRESSION: 1. Trace subsegmental atelectasis versus scarring present at the left lung base. Otherwise, no acute cardiopulmonary process. No focal pulmonary consolidation. SL: [id number] 10/15/2018 - - Read by: Asael Roth MD Dictated Date/time: 10/15/18 14:38 Electronically Signed by: Asael Roth MD 10/15/18 14:39 FINAL REPORT [facility] CHEM [facility] eGFR 93 mL/min/1.73m2 12/10/2017 Result Comment: The eGFR is calculated using the CKD-EPI formula. In most young, healthy individuals the eGFR will be >90 mL/min/1.73m2. The eGFR declines with age. An eGFR of 60-89 may be normal in some populations, particularly the elderly, for whom the CKD-EPI formula has not been extensively validated. Use of the eGFR is not recommended in the following populations: Individuals with unstable creatinine concentrations, including patients and those with serious co-morbid conditions. Patients with extremes in muscle mass or diet. The data above are obtained from the National Kidney Disease Education Program (NKDEP) which additionally recommends that when the eGFR is used in patients with extremes of body mass index for purposes of drug dosing, the eGFR should be multiplied by the estimated BMI. [facility] CHEM PANEL Creatinine Lvl 0.80 mg/dL 0.50 - 1.40 12/10/2017 [facility] CHEM PANEL BUN 12 mg/dL 7 - 22 12/10/2017 [facility] CHEM PANEL Potassium Lvl 4.2 meq/L 3.5 - 5.1 12/10/2017 [facility] CHEM PANEL Sodium Lvl 141 meq/L 135 - 145 12/10/2017 [facility] CHEM PANEL Chloride Lvl 107 meq/L 95 - 109 12/10/2017 [facility] CHEM PANEL Calcium Lvl 8.6 mg/dL 8.5 - 10.5 12/10/2017 [facility] CHEM PANEL CO2 25 meq/L 24 - 32 12/10/2017 [facility] CHEM PANEL Glucose Lvl 127 mg/dL 70 - 99 12/10/2017 [facility] CHEM PANEL AGAP 13.2 meq/L 10.0 - 20.0 12/10/2017 [facility] HEMATOLOGY Hgb 12.5 g/dL 14.0 - 18.0 12/10/[address] [facility] RBC 4.29 M/CMM 4.70 - 6.10 12/10/[address] [facility] MCH 29.1 pg 27.0 - 31.0 12/10/[address] [facility] Platelet 222 K/CMM 133 - 450 12/10/[address] [facility] RDW 13.1 % 11.5 - 14.5 12/10/[address] [facility] MCHC 33.4 g/dL 32.0 - 36.0 12/10/[address] [facility] MPV 9.2 fL 7.4 - 10.4 12/10/[address] [facility] WBC 13.2 K/CMM 3.7 - 10.4 12/10/[address] [facility] MCV 87.1 fL 80.0 - 94.0 12/10/[address] [facility] Hct 37.4 % 42.0 - 54.0 12/10/[address] [facility] Basophils 0.2 % 0.0 - 1.0 12/10/[address] [facility] Monocytes 7.8 % 2.0 - 12.0 12/10/[address] [facility] Lymphocytes 12.4 % 20.0 - 40.0 12/10/[address] [facility] Segs 79.6 % 45.0 - 75.0 12/10/[address] [facility] Monocytes # 1.0 K/CMM 0.0 - 0.8 12/10/[address] [facility] Lymphocytes # 1.6 K/CMM 1.0 - 5.5 12/10/[address] [facility] Segs-Bands # 10.5 K/CMM 1.5 - 8.1 12/10/2017 [facility] BACTERIAL - SEROLOGY MRSA by PCR Negative (12/09/17 12:45 PM) 12/09/2017 [facility] CHEM PANEL Phosphorus 2.5 mg/dL 2.5 - 4.5 12/09/2017 [facility] CHEM PANEL Magnesium Lvl 2.3 mg/dL 1.8 - 2.4 12/09/2017 [facility] CHEM PANEL eGFR 98 mL/min/1.73m2 12/09/2017 Result Comment: The eGFR is calculated using the CKD-EPI formula. In most young, healthy individuals the eGFR will be >90 mL/min/1.73m2. The eGFR declines with age. An eGFR of 60-89 may be normal in some populations, particularly the elderly, for whom the CKD-EPI formula has not been extensively validated. Use of the eGFR is not recommended in the following populations: Individuals with unstable creatinine concentrations, including patients and those with serious co-morbid conditions. Patients with extremes in muscle mass or diet. The data above are obtained from the National Kidney Disease Education Program (NKDEP) which additionally recommends that when the eGFR is used in patients with extremes of body mass index for purposes of drug dosing, the eGFR should be multiplied by the estimated BMI. [facility] CHEM PANEL BUN 14 mg/dL 7 - 22 12/09/2017 [facility] CHEM PANEL Glucose Lvl 133 mg/dL 70 - 99 12/09/2017 [facility] CHEM PANEL Creatinine Lvl 0.70 mg/dL 0.50 - 1.40 12/09/2017 [facility] CHEM PANEL Bili Total 0.5 mg/dL 0.2 - 1.3 12/09/2017 [facility] CHEM PANEL AST 23 unit/L 0 - 37 12/09/2017 [facility] CHEM PANEL Alk Phos 68 unit/L 39 - 136 12/09/2017 [facility] CHEM PANEL ALT 55 unit/L 0 - 65 12/09/2017 [facility] CHEM PANEL Chloride Lvl 104 meq/L 95 - 109 12/09/2017 [facility] CHEM PANEL Sodium Lvl 139 meq/L 135 - 145 12/09/2017 [facility] CHEM PANEL Potassium Lvl 3.8 meq/L 3.5 - 5.1 12/09/2017 [facility] CHEM PANEL CO2 28 meq/L 24 - 32 12/09/2017 [facility] CHEM PANEL Albumin Lvl 3.7 g/dL 3.5 - 5.0 12/09/2017 [facility] CHEM PANEL Calcium Lvl 8.5 mg/dL 8.5 - 10.5 12/09/2017 [facility] CHEM PANEL Total Protein 7.4 g/dL 6.4 - 8.4 12/09/2017 [facility] CHEM PANEL AGAP 10.8 meq/L 10.0 - 20.0 12/09/2017 [facility] CHEM PANEL B/C Ratio 20 6 - 25 12/09/2017 [facility] CHEM PANEL A/G Ratio 1.0 0.7 - 1.6 12/09/2017 [facility] CHEM PANEL Globulin 3.7 g/dL 2.7 - 4.2 12/09/[address] [facility] MCV 86.4 fL 80.0 - 94.0 12/09/[address] [facility] MCH 28.4 pg 27.0 - 31.0 12/09/[address] [facility] MCHC 32.8 g/dL 32.0 - 36.0 12/09/[address] [facility] RDW 13.3 % 11.5 - 14.5 12/09/[address] [facility] Platelet 206 K/CMM 133 - 450 12/09/[address] [facility] MPV 9.6 fL 7.4 - 10.4 12/09/[address] [facility] RBC 4.73 M/CMM 4.70 - 6.10 12/09/[address] [facility] WBC 12.9 K/CMM 3.7 - 10.4 12/09/[address] [facility] Hgb 13.4 g/dL 14.0 - 18.0 12/09/[address] [facility] Hct 40.9 % 42.0 - 54.0 12/09/[address] [facility] PT 13.1 s 12.0 - 14.7 12/09/[address] [facility] PTT 30.6 s 22.9 - 35.8 12/09/[address] [facility] INR 0.99 0.85 - 1.17 12/09/[address] [facility] Basophils # 0.0 K/CMM 0.0 - 0.2 12/09/[address] [facility] Eosinophils # 0.0 K/CMM 0.0 - 0.5 12/09/[address] [facility] Segs-Bands # 11.7 K/CMM 1.5 - 8.1 12/09/[address] [facility] Lymphocytes # 1.0 K/CMM 1.0 - 5.5 12/09/[address] [facility] Monocytes # 0.1 K/CMM 0.0 - 0.8 12/09/[address] [facility] Basophils 0.0 % 0.0 - 1.0 12/09/[address] [facility] Eosinophils 0.2 % 0.0 - 4.0 12/09/2017 [facility] HEMATOLOGY Monocytes 1.0 % 2.0 - 12.0 12/09/2017 [facility] HEMATOLOGY Plt Morph Normal (12/09/17 12:29 PM) 12/09/2017 [facility] HEMATOLOGY Segs 90.7 % 45.0 - 75.0 12/09/2017 [facility] HEMATOLOGY Lymphocytes 8.1 % 20.0 - 40.0 12/09/2017 [facility] HEMATOLOGY RBC Morph Normal (12/09/17 12:29 PM) 12/09/2017 [facility] LIPIDS CHD Risk 3.76 4.00 - 7.30 12/09/2017 [facility] LIPIDS VLDL 23 12/09/2017 [facility] LIPIDS LDL (Calculated) 137 mg/dL <=99 mg/dL 12/09/2017 [facility] LIPIDS HDL 58 mg/dL >=61 mg/dL 12/09/2017 [facility] LIPIDS Trig 113 mg/dL <=149 mg/dL 12/09/2017 [facility] LIPIDS Chol 218 mg/dL <=199 mg/dL 12/09/2017 [facility] PARATHYROID PROFILE Ca Norm WB 1.02 mMol/L 1.05 - 1.25 12/09/2017 [facility] PARATHYROID PROFILE Ca Ion WB 1.06 mMol/L 1.05 - 1.25 12/09/2017 [facility] SPECIAL CHEMISTRY Hgb A1C 4.7 % <=5.6 % 12/09/2017 [facility] BODY FLUIDS Protein CSF 29 mg/dL 15 - 45 12/09/2017 [facility] BODY FLUIDS Clarity CSF Clear (12/09/17 9:36 AM) Clear 12/09/2017 [facility] BODY FLUIDS Supernat CSF Colorless (12/09/17 9:36 AM) Colorless 12/09/2017 [facility] BODY FLUIDS WBC CSF 0 /mm3 0 - 53 12/09/2017 [facility] BODY FLUIDS Tube Num CSF See Note 1 (12/09/17 9:36 AM) 12/09/2017 Result Comment: Only one tube received [facility] BODY FLUIDS Color CSF Colorless (12/09/17 9:36 AM) Colorless 12/09/2017 [facility] BODY FLUIDS RBC CSF 7 /mm3 0 - 03 12/09/2017 [facility] BODY FLUIDS Glucose CSF 60 mg/dL 45 - 80 12/09/2017 [facility] Brain wo contrast CT Brain wo contrast CT Study: Brain wo contrast CT 12/09/2017 10:52 AM NAIL TECHNICIAN Ordering Physician: Prasanth Morris MD Clinical Indication: Confusion - TEST RACK OPERATOR shunt placement Comparison: None TECHNIQUE: CT images are obtained from the foramen magnum to the vertex on a multidetector CT. Sagittal and coronal reformats are acquired. CT radiation dose DLP: 767 mGy-cm. FINDINGS: A right posterior temporal-parietal TEST RACK OPERATOR shunt catheter is present, new as compared to prior, with soft tissue swelling and subcutaneous emphysema in the right parieto-occipital region. Surgical alejandra are present in the scalp. The tip of the catheter is present in the posterior body of the right lateral ventricle. Moderate communicating hydrocephalus is present, unchanged as compared to the study performed earlier the same day. There is trace air within the right temporal horn. Narrowing of cerebral sulci is present, unchanged as compared to the previous exam. Basilar cisterns are within normal limits. No midline shift identified. Heavy bilateral cavernous ICA calcifications are present. No intracranial mass, extra-axial fluid collection or intracranial hemorrhage is seen. Visualized paranasal sinuses are clear. Mastoid air cells are clear. Orbital structures are grossly unremarkable. IMPRESSION: Moderate communicating hydrocephalus is present, unchanged as compared to previous MRI dated 12/09/2017 performed at 7:20 AM. A right-sided TEST RACK OPERATOR shunt catheter is present with tip in the body of the right lateral ventricle. Expected postoperative changes are seen. No intracranial hemorrhage, encephalomalacic change or extra-axial fluid collection is identified. SL: [id number] 12/09/2017 - - Read by: Thelma Luque MD Dictated Date/time: 12/09/17 12:11 Electronically Signed by: Thelma Luque MD 12/09/17 12:16 FINAL REPORT [facility] Brain wo contrast MRI Brain wo contrast MRI Study: Brain wo contrast MRI 12/09/2017 7:01 AM NAIL TECHNICIAN Ordering Physician: Prasanth Morris MD Clinical Indication: g91.9/shunt placement. 67-year-old with hydrocephalus. Comparison: October 31, 2016 TECHNIQUE: Thin section axial T1 SPGR and axial FSE T2-weighted images of the brain are obtained on a 1.5 Vanessa magnet. There is moderate enlargement of the lateral ventricles, temporal horns and third ventricle, with prominence of the aqueduct of Sylvius and fourth ventricle. Changes are compatible with communicating hydrocephalus. Multiple small, scattered foci of T2 hyperintensity are present in the white matter of the cerebral hemispheres, likely reflecting mild chronic small vessel ischemic disease. Scattered, small old lacunar infarcts are present in the basal ganglia bilaterally. There is minimal hazy T2 hyperintense signal adjacent to the ventricular system bilaterally, likely reflecting minimal transependymal flow of CSF. There is no evidence for intracranial mass or mass effect. No subacute or chronic blood products are seen. Normal flow voids are present in the arterial vessels at the skull base. Flow voids in the dural venous sinuses are normal. The internal auditory canals and visualized cranial nerves at the skull base are unremarkable. Minimal bilateral ethmoid and maxillary sinus opacification is present. Mastoid air cells are clear. Orbital structures are grossly unremarkable. IMPRESSION: There is moderate communicate hydrocephalus with minimal transependymal flow CSF. Mild chronic small vessel ischemic disease is suspected in the white matter of the cerebral hemispheres bilaterally. SL: [id number] 12/09/2017 - - Read by: Thelma Luque MD Dictated Date/time: 12/09/17 08:23 Electronically Signed by: Thelma Luque MD 12/09/17 08:45 FINAL REPORT [facility] BLOOD BANK RESULTS ABO/Rh O NEG 12/03/2017 [facility] BLOOD BANK RESULTS Antibody Scrn Negative (12/03/17 11:06 AM) 12/03/2017 [facility] CHEM PANEL eGFR 98 mL/min/1.73m2 12/03/2017 Result Comment: The eGFR is calculated using the CKD-EPI formula. In most young, healthy individuals the eGFR will be >90 mL/min/1.73m2. The eGFR declines with age. An eGFR of 60-89 may be normal in some populations, particularly the elderly, for whom the CKD-EPI formula has not been extensively validated. Use of the eGFR is not recommended in the following populations: Individuals with unstable creatinine concentrations, including patients and those with serious co-morbid conditions. Patients with extremes in muscle mass or diet. The data above are obtained from the National Kidney Disease Education Program (NKDEP) which additionally recommends that when the eGFR is used in patients with extremes of body mass index for purposes of drug dosing, the eGFR should be multiplied by the estimated BMI. [facility] CHEM PANEL Calcium Lvl 8.7 mg/dL 8.5 - 10.5 12/03/2017 [facility] CHEM PANEL Sodium Lvl 142 meq/L 135 - 145 12/03/2017 [facility] CHEM PANEL Potassium Lvl 4.0 meq/L 3.5 - 5.1 12/03/2017 [facility] CHEM PANEL BUN 14 mg/dL 7 - 22 12/03/2017 [facility] CHEM PANEL Creatinine Lvl 0.70 mg/dL 0.50 - 1.40 12/03/2017 [facility] CHEM PANEL CO2 29 meq/L 24 - 32 12/03/2017 [facility] CHEM PANEL Chloride Lvl 108 meq/L 95 - 109 12/03/2017 [facility] CHEM PANEL Glucose Lvl 147 mg/dL 70 - 99 12/03/2017 [facility] CHEM PANEL AGAP 9.0 meq/L 10.0 - 20.0 12/03/[address] [facility] RDW 13.1 % 11.5 - 14.5 12/03/[address] [facility] MCHC 33.5 g/dL 32.0 - 36.0 12/03/[address] [facility] MCH 29.3 pg 27.0 - 31.0 12/03/[address] [facility] Platelet 217 K/CMM 133 - 450 12/03/[address] [facility] MPV 9.2 fL 7.4 - 10.4 12/03/[address] [facility] WBC 6.9 K/CMM 3.7 - 10.4 12/03/[address] [facility] Hct 40.5 % 42.0 - 54.0 12/03/[address] [facility] Hgb 13.6 g/dL 14.0 - 18.0 12/03/[address] [facility] MCV 87.3 fL 80.0 - 94.0 12/03/[address] [facility] RBC 4.64 M/CMM 4.70 - 6.10 12/03/[address] [facility] Basophils # 0.0 K/CMM 0.0 - 0.2 12/03/[address] [facility] Eosinophils # 0.2 K/CMM 0.0 - 0.5 12/03/[address] [facility] Lymphocytes # 1.9 K/CMM 1.0 - 5.5 12/03/[address] [facility] Monocytes # 0.5 K/CMM 0.0 - 0.8 12/03/[address] [facility] Eosinophils 2.4 % 0.0 - 4.0 12/03/[address] [facility] Monocytes 7.6 % 2.0 - 12.0 12/03/[address] [facility] Lymphocytes 27.0 % 20.0 - 40.0 12/03/2017 [facility] HEMATOLOGY Segs 62.7 % 45.0 - 75.0 12/03/2017 [facility] HEMATOLOGY Basophils 0.3 % 0.0 - 1.0 12/03/2017 [facility] HEMATOLOGY Segs-Bands # 4.4 K/CMM 1.5 - 8.1 12/03/2017 [facility] HEMATOLOGY INR 1.01 0.85 - 1.17 12/03/2017 [facility] HEMATOLOGY PT 13.3 s 12.0 - 14.7 12/03/2017 [facility] HEMATOLOGY PTT 30.1 s 22.9 - 35.8 12/03/2017 [facility] IMMUNOLOGY HIV Ag/Ab 4th Gen Negative *NA* (12/03/17 11:06 AM) Negative 12/03/2017 [facility] Spine lumbar puncture w fluoro DX Spine lumbar puncture w fluoro DX Spine lumbar puncture w fluoro DX 11/03/2017 10:06 AM NAIL TECHNICIAN Ordering Physician: Prasanth Morris MD CLINICAL INDICATION: HYDROCEPHALUS - CISTERNOGRAM FT:0.4min Dose: 1.041 Gycm2; COMPARISON: None PROCEDURE: Informed consent was obtained from the patient, after which the patient was brought into the examination suite and placed in a prone position on the fluoroscopy table. The L2/L3 level was radiographically marked, and the overlying skin was prepped and draped utilizing all elements of maximal barrier sterile technique. Lidocaine 1% was injected into a focus of skin of the back and into the deeper soft tissues. A 20-gauge spinal needle was advanced under intermittent fluoroscopic guidance through the L2/L3 interspinous space to achieve the tip within the spinal canal. Inner stylette was removed, and clear CSF was tapped. Opening pressure was 25 cm of water. Clear CSF was removed without complication. 1 mCi indium-111 DTPA and less than 1 mL volume was injected intrathecally and tubing was flushed with the patient's own CSF without complication. Needle was removed. Patient was taken back to the room in a stable fashion. COMPLICATIONS: None ANESTHESIA: Lidocaine 1%, subcutaneous [employer] INVESTOR: Dr. Edmondson FLUOROSCOPY TIME: 0.4 min IMPRESSION: 1. Successful lumbar puncture and injection of 1 mCi of indium-111 DTPA for nuclear cisternogram. 2. Opening pressure mildly elevated at 25 cm of water. SL: [id number] 11/03/2017 - - Read by: Bernardo Edmondson MD Dictated Date/time: 11/03/17 15:55 Electronically Signed by: Bernardo Edmondson MD 11/03/17 16:01 FINAL REPORT [facility] Cisternogram CSF flow CA Cisternogram CSF flow NM Patient Name: LENORA HILL : 1950; Age: 67 years y/o Male MR: [id number] Study: Cisternogram CSF flow NM 11/03/2017 11:20 AM NAIL TECHNICIAN Ordering Physician: Prasanth Morris MD Clinical Indication: - Hydrocephalus, unspecified,; bilateral conductive hearing loss; amnesia Comparison: MRI brain 10/31/2016 TECHNIQUE: Nuclear cisternogram was performed after injection of 1.0 uCi of In111 DTPA intrathecally after lumbar puncture. Imaging was obtained after 24 hours, 48 hours, and 72 hours. FINDINGS: The 24-hour images show ascension of the radiotracer from the lumbar intrathecal injection site cephalad into the skull base region, but with prominent radiotracer activity in the lateral ventricles. The 48-hour images show radiotracer in the lateral subarachnoid space and skullbase region, but with only slightly reduced radiotracer in the lateral ventricles. The 72-hours images show very slow, mild progression of radiotracer into the cerebral convexities, but with persistent prominent amount of lateral intraventricular radiotracer accumulation. IMPRESSION: Probable communicating/normal pressure hydrocephalus. SL: [id number] 11/03/2017 - - Read by: Bernardo Edmondson MD Dictated Date/time: 11/06/17 14:47 Electronically Signed by: Bernardo Edmondson MD 11/06/17 14:52 FINAL REPORT [facility] CHEM PANEL eGFR 96 mL/min/1.73m2 10/12/2017 Result Comment: The eGFR is calculated using the CKD-EPI formula. In most young, healthy individuals the eGFR will be >90 mL/min/1.73m2. The eGFR declines with age. An eGFR of 60-89 may be normal in some populations, particularly the elderly, for whom the CKD-EPI formula has not been extensively validated. Use of the eGFR is not recommended in the following populations: Individuals with unstable creatinine concentrations, including patients and those with serious co-morbid conditions. Patients with extremes in muscle mass or diet. The data above are obtained from the National Kidney Disease Education Program (NKDEP) which additionally recommends that when the eGFR is used in patients with extremes of body mass index for purposes of drug dosing, the eGFR should be multiplied by the estimated BMI. [facility] CHEM PANEL Chloride Lvl 106 meq/L 95 - 109 10/12/2017 [facility] CHEM PANEL Sodium Lvl 142 meq/L 135 - 145 10/12/2017 [facility] CHEM PANEL Creatinine Lvl 0.73 mg/dL 0.50 - 1.40 10/12/2017 [facility] CHEM PANEL BUN 17 mg/dL 7 - 22 10/12/2017 [facility] CHEM PANEL Potassium Lvl 3.9 meq/L 3.5 - 5.1 10/12/2017 [facility] CHEM PANEL Glucose Lvl 120 mg/dL 70 - 99 10/12/2017 [facility] CHEM PANEL CO2 28 meq/L 24 - 32 10/12/2017 [facility] CHEM PANEL Calcium Lvl 8.9 mg/dL 8.5 - 10.5 10/12/2017 [facility] CHEM PANEL AGAP 11.9 meq/L 10.0 - 20.0 10/12/2017 [facility] HEMATOLOGY Eosinophils 0.1 % 0.0 - 4.0 10/12/2017 [facility] HEMATOLOGY Basophils 0.3 % 0.0 - 1.0 10/12/2017 [facility] HEMATOLOGY Lymphocytes 13.7 % 20.0 - 40.0 10/12/2017 [facility] Monocytes 10.2 % 2.0 - 12.0 10/12/2017 [facility] HEMATOLOGY Segs 75.7 % 45.0 - 75.0 10/12/2017 [facility] Monocytes # 1.7 K/CMM 0.0 - 0.8 10/12/2017 [facility] Lymphocytes # 2.2 K/CMM 1.0 - 5.5 10/12/2017 [facility] Segs-Bands # 12.3 K/CMM 1.5 - 8.1 10/12/2017 [facility] MCHC 33.0 g/dL 32.0 - 36.0 10/12/2017 [facility] Platelet 242 K/CMM 133 - 450 10/12/2017 [facility] RDW 12.8 % 11.5 - 14.5 10/12/2017 [facility] MPV 9.1 fL 7.4 - 10.4 10/12/2017 [facility] MCH 29.1 pg 27.0 - 31.0 10/12/2017 [facility] WBC 16.2 K/CMM 3.7 - 10.4 10/12/2017 [facility] HEMATOLOGY Hgb 13.7 g/dL 14.0 - 18.0 10/12/2017 [facility] HEMATOLOGY RBC 4.72 M/CMM 4.70 - 6.10 10/12/2017 [facility] HEMATOLOGY MCV 88.1 fL 80.0 - 94.0 10/12/2017 [facility] Hct 41.6 % 42.0 - 54.0 10/12/2017 [facility] RAPID Grp A Strep Scr Negative (10/12/17 2:50 AM) Negative 10/12/2017 [facility] CHEM PANEL eGFR 105 mL/min/1.73m2 10/12/2017 Result Comment: The eGFR is calculated using the CKD-EPI formula. In most young, healthy individuals the eGFR will be >90 mL/min/1.73m2. The eGFR declines with age. An eGFR of 60-89 may be normal in some populations, particularly the elderly, for whom the CKD-EPI formula has not been extensively validated. Use of the eGFR is not recommended in the following populations: Individuals with unstable creatinine concentrations, including patients and those with serious co-morbid conditions. Patients with extremes in muscle mass or diet. The data above are obtained from the National Kidney Disease Education Program (NKDEP) which additionally recommends that when the eGFR is used in patients with extremes of body mass index for purposes of drug dosing, the eGFR should be multiplied by the estimated BMI. [facility] CHEM PANEL POC Creatinine 0.6 mg/dL 0.5 - 1.4 10/12/2017 [facility] Neck soft tissue w contrast CT Neck soft tissue w contrast CT CT neck soft tissues with contrast Clinical Indication: Evaluate for peritonsillar abscess. Comparison: None. Technique: CT of the neck is performed with a multidetector CT. Coronal and sagittal reconstructions were obtained. CT imaging was performed with exposure control parameters to reduce radiation dose. CONTRAST: 100 cc of IV Omnipaque contrast material was used for the exam. CT Radiation Dose DLP 356.05 mGy-cm FINDINGS: Elevation of the oral cavity is limited due to artifact from dental inlays. SOFT TISSUES: Loculated fluid collection in the left peritonsillar region with peripheral enhancement and measuring 2 x 3 x 3 cm (AP by transverse by craniocaudal). This is most consistent with an abscess resulting in moderate airway narrowing. LYMPH NODES: No enlarged lymph nodes in the neck. SALIVARY GLANDS: The submandibular and parotid glands are unremarkable. PARANASAL SINUSES : The paranasal sinuses are clear without soft tissue thickening or air-fluid levels. VASCULAR STRUCTURES: The jugular veins and carotid vessels are patent. OSSEOUS STRUCTURES: Fusion at C5-C6. Moderate degenerative changes are present. THYROID GLANDS: The thyroid lobes are symmetric and there are no lesions. VISUALIZED LUNG APICES: Clear. IMPRESSION: 1. Left peritonsillar abscess measuring 2 x 3 x 3 cm and resulting in moderate airway narrowing. SL: [id number] 10/12/2017 - - Read by: Renae Saxena MD Dictated Date/time: 10/12/17 04:37 Electronically Signed by: Renae Saxena MD 10/12/17 04:50 FINAL REPORT [facility] Protein CSF 47 mg/dL 15 - 45 12/30/2016 [facility] Glucose CSF 56 mg/dL 45 - 80 12/30/2016 [facility] Clarity CSF Clear (12/30/16 10:34 AM) Clear 12/30/2016 [facility] BODY FLUIDS RBC CSF 1 /mm3 0 - 03 12/30/2016 [facility] BODY FLUIDS WBC CSF 0 /mm3 0 - 53 12/30/2016 [facility] BODY FLUIDS Color CSF Colorless (12/30/16 10:34 AM) Colorless 12/30/2016 [facility] Tube Num CSF 4 12/30/2016 [facility] Supernat CSF Colorless (12/30/16 10:34 AM) Colorless 12/30/2016 [facility] Spine lumbar puncture w fluoro DX Spine lumbar puncture w fluoro DX Patient Name: LENORA HILL : 1950; Age: 66 years y/o Male MR: [id number] Study: Spine lumbar puncture w fluoro DX 12/30/2016 9:49 AM NAIL TECHNICIAN Clinical Indication: G91.2 (Idiopathic) normal pressure hydrocephalus. dr. still / fluoro time: 5 seconds / skin dose: 3 gy / opening pressure: 16 / closing pressure: 10.5/ approx. 12.5 cc csf removed COMPARISON: None. EXAM: Lumbar Puncture, flouroscopic guidance CONSENT: The patient denied any drug allergies. The patient denied intake of any blood thinners, including Plavix, aspirin and warfarin. The risks and benefits of the procedure, the risk of doing nothing, as well as alternative therapies were explained to the patient. The patient was then allowed to ask questions. The patient stated understanding and agreed to proceed. It is my judgment the patient does understand the treatment plan. FLOUROSCOPY TIME: 5 seconds TECHNIQUE AND FINDINGS: Time out procedure was performed. The lower back was prepped and draped in sterile fashion with the patient in prone position. Under fluoroscopic guidance a 22 gauge needle was advanced into the thecal sac at the L4-L5 interspace, and 12.5 mL of clear spinal fluid was withdrawn without complication. The opening pressure was 16 cm of water and the closing pressure was 10.5 cm of water. COMPLICATION: None. IMPRESSION: Fluoroscopically guided lumbar puncture. SL: [id number] 12/30/2016 - - Read by: Nathanael Still MD Dictated Date/time: 12/30/16 13:03 Electronically Signed by: Nathanael Still MD 12/30/16 13:05 FINAL REPORT [facility] PANEL eGFR 106 mL/min/1.73m2 10/31/2016 Result Comment: The eGFR is calculated using the CKD-EPI formula. In most young, healthy individuals the eGFR will be >90 mL/min/1.73m2. The eGFR declines with age. An eGFR of 60-89 may be normal in some populations, particularly the elderly, for whom the CKD-EPI formula has not been extensively validated. Use of the eGFR is not recommended in the following populations: Individuals with unstable creatinine concentrations, including patients and those with serious co-morbid conditions. Patients with extremes in muscle mass or diet. The data above are obtained from the National Kidney Disease Education Program (NKDEP) which additionally recommends that when the eGFR is used in patients with extremes of body mass index for purposes of drug dosing, the eGFR should be multiplied by the estimated BMI. [facility] CHEM PANEL POC Creatinine 0.6 mg/dL 0.5 - 1.4 10/31/2016 [facility] Int Auditory Canal w/wo contrast MRI Int Auditory Canal w/wo contrast MRI MRI BRAIN/IACs WITH AND WITHOUT CONTRAST INDICATION: Bilateral conductive hearing loss COMPARISON: None DISCUSSION: Image detail is degraded by motion artifacts. BRAIN: There are generalized involutional changes of the brain and moderate microangiopathic changes of the white matter. Ventricular enlargement is disproportionate to sulcal enlargement. The fourth ventricle is normal in size. There is mild confluent subependymal T2 FLAIR hyperintensity, potentially secondary to transependymal CSF flow. The normal flow voids of the bilateral internal carotid arteries and vertebrobasilar arteries are visible. There is no evidence of acute vascular insults, space occupying lesions, hemorrhage, hydrocephalus, midline shift, or extra-axial fluid collections. No cortical-base d, suprasellar, craniocervical, enhancing, or bone abnormalities are seen. IACs: There is a 5 x 3 mm well-circumscribed ovoid enhancing nodule of the cisternal segment of the left trigeminal nerve. The right trigeminal nerve is normal in signal. No abnormalities are seen at the Meckel caves or cavernous sinuses. Grossly, no nasopharyngeal or ballpoint pen cartridge tester space masses are seen in the MRI of the brain. No abnormalities are seen in the internal auditory canals. The labyrinthine structures are unremarkable. The bilateral mastoid air cells are grossly clear. IMPRESSION: 1. Chronic age-related changes of the brain. 2. Ventriculomegaly suggests normal pressure hydrocephalus. There is potential mild transependymal CSF flow. 3. A 5 mm enhancing focus of the cisternal segment of the left trigeminal nerve. The differential diagnosis includes trigeminal nerve schwannoma. Perineural tumor spread is less likely. No obvious masses are visible at the nasopharynx or visible ballpoint pen cartridge tester space. Correlation with clinical history is needed. 4. No abnormalities are seen at the bilateral IACs/temporal bones. SL:16 10/31/2016 - - Read by: Mukund Avila MD Dictated Date/time: 10/31/16 16:58 Electronically Signed by: Mukund Avila MD 10/31/16 17:13 FINAL REPORT [facility] Brain w/wo contrast MRI Brain w/wo contrast MRI MRI BRAIN/IACs WITH AND WITHOUT CONTRAST INDICATION: Bilateral conductive hearing loss COMPARISON: None DISCUSSION: Image detail is degraded by motion artifacts. BRAIN: There are generalized involutional changes of the brain and moderate microangiopathic changes of the white matter. Ventricular enlargement is disproportionate to sulcal enlargement. The fourth ventricle is normal in size. There is mild confluent subependymal T2 FLAIR hyperintensity, potentially secondary to transependymal CSF flow. The normal flow voids of the bilateral internal carotid arteries and vertebrobasilar arteries are visible. There is no evidence of acute vascular insults, space occupying lesions, hemorrhage, hydrocephalus, midline shift, or extra-axial fluid collections. No cortical-base d, suprasellar, craniocervical, enhancing, or bone abnormalities are seen. IACs: There is a 5 x 3 mm well-circumscribed ovoid enhancing nodule of the cisternal segment of the left trigeminal nerve. The right trigeminal nerve is normal in signal. No abnormalities are seen at the Meckel caves or cavernous sinuses. Grossly, no nasopharyngeal or ballpoint pen cartridge tester space masses are seen in the MRI of the brain. No abnormalities are seen in the internal auditory canals. The labyrinthine structures are unremarkable. The bilateral mastoid air cells are grossly clear. IMPRESSION: 1. Chronic age-related changes of the brain. 2. Ventriculomegaly suggests normal pressure hydrocephalus. There is potential mild transependymal CSF flow. 3. A 5 mm enhancing focus of the cisternal segment of the left trigeminal nerve. The differential diagnosis includes trigeminal nerve schwannoma. Perineural tumor spread is less likely. No obvious masses are visible at the nasopharynx or visible ballpoint pen cartridge tester space. Correlation with clinical history is needed. 4. No abnormalities are seen at the bilateral IACs/temporal bones. SL:16 10/31/2016 - - Read by: Mukund Avila MD Dictated Date/time: 10/31/16 16:58 Electronically Signed by: Mukund Avila MD 10/31/16 17:13 FINAL REPORT [facility] Vital Signs Vital Sign Value Date Comments Source Respitory Rate 15 12/10/2017 [facility] Systolic (mm Hg) 131 12/10/2017 [facility] Diastolic (mm Hg) 55 12/10/2017 [facility] Respitory Rate 13 12/10/2017 [facility] Respitory Rate 13 12/10/2017 [facility] Systolic (mm Hg) 124 12/10/2017 [facility] Diastolic (mm Hg) 71 12/10/2017 [facility] Systolic (mm Hg) 126 12/10/2017 [facility] Diastolic (mm Hg) 99 12/10/2017 [facility] Heart Rate 72 12/09/2017 [facility] Temperature Oral (F) 98 F 12/03/2017 [facility] Heart Rate 67 12/03/2017 [facility] Height 172.72 cm 12/03/2017 [facility] Weight 88.182 12/03/2017 [facility] BMI Calculated 29.56 12/03/2017 [facility] Heart Rate 64 11/03/2017 [facility] Respitory Rate 18 11/03/2017 [facility] Systolic (mm Hg) 157 11/03/2017 [facility] Diastolic (mm Hg) 74 11/03/2017 [facility] Respitory Rate 16 11/03/2017 [facility] Heart Rate 66 11/03/2017 [facility] Systolic (mm Hg) 168 11/03/2017 [facility] Diastolic (mm Hg) 79 11/03/2017 [facility] Respitory Rate 16 11/03/2017 [facility] Heart Rate 62 11/03/2017 [facility] Systolic (mm Hg) 151 11/03/2017 [facility] Diastolic (mm Hg) 70 11/03/2017 [facility] Temperature Oral (F) 97.6 F 11/03/2017 [facility] Height 68 cm 11/03/2017 [facility] Weight 84.091 11/03/2017 [facility] BMI Calculated 181.86 11/03/2017 [facility] Temperature Oral (F) 97.7 F 11/02/2017 [facility] BMI Calculated 28.19 11/02/2017 [facility] Weight 84.091 11/02/2017 [facility] Height 172.72 cm 11/02/2017 [facility] Heart Rate 90 10/12/2017 [facility] Respitory Rate 16 10/12/2017 [facility] Temperature Oral (F) 98.1 F 10/12/2017 [facility] Systolic (mm Hg) 131 10/12/2017 [facility] Diastolic (mm Hg) 106 10/12/2017 [facility] Systolic (mm Hg) 124 10/12/2017 [facility] Diastolic (mm Hg) 70 10/12/2017 [facility] Respitory Rate 16 10/12/2017 [facility] Heart Rate 98 10/12/2017 [facility] Heart Rate 108 10/12/2017 [facility] Respitory Rate 18 10/12/2017 [facility] Systolic (mm Hg) 116 10/12/2017 [facility] Diastolic (mm Hg) 78 10/12/2017 [facility] Temperature Oral (F) 100 F 10/12/2017 [facility] Weight 86.364 10/12/2017 [facility] Temperature Oral (F) 100.3 F 10/12/2017 [facility] Encounters Location Location Details Encounter Type Encounter Number Reason For Visit Attending Provider ADM Date DC Date Status Source [facility] Outpatient [id number] Arcelia Cuevas 10/31/2016 11/01/2016 [facility] Outpatient [id number] Hung Levy 12/30/2016 12/31/2016 [facility] Emergency [id number] Wero Radha 10/12/2017 10/12/2017 [facility] Outpatient [id number] Prasanth Morris 11/03/2017 11/03/2017 [facility] Inpatient [id number] Prasanth Morris 12/09/2017 12/10/2017 [facility] Outpatient [id number] Prasanth Morris 12/09/2017 12/09/2017 [facility] Procedures Procedure Code Date Perfomer Comments Source Unilateral repair of inguinal hernia [id number] [facility]
--- OUTSIDE RECORDS SUMMARY | 2018-12-24 06:27 | XMS REPORT | Summary of Care ---
Author Author [facility] Organization [facility] Address Unknown Phone Unavailable Encounter ESTUARDO Prince(DEBRA) [id number] Date(s): 10/31/16 - 10/31/16 [facility] [address] [place] [address]- Discharge Disposition: Home or Self Care Attending Physician: Arcelia Cuevas MD Referring Physician: Arcelia Cuevas MD Vital Signs No data available for this section Problem List No data available for this section Allergies, Adverse Reactions, Alerts No data available for this section Medications No data available for this section Results CHEM PANEL Most recent to 1 oldest [Reference Range]: eGFR 106 mL/min/1.73m2 1 *NA* (10/31/16 4:31 PM) POC Creatinine 0.6 mg/dL [0.5-1.4 mg/dL] (10/31/16 4:31 PM) 1Result Comment: The eGFR is calculated using the [...] from the National Kidney Disease Education Program ( NKDEP) which additionally recommends that when the eGFR is used in patients with extremes of body mass index for purposes of drug dosing, the eGFR should be mul tiplied by the estimated BMI. Immunizations No data available for this section Procedures No data available for this section Social History No data available for this section Assessment and Plan No data available for this section
--- OUTSIDE RECORDS SUMMARY | 2018-12-24 06:27 | XMS REPORT | Summary of Care ---
Author Author [facility] Organization [facility] Address Unknown Phone Unavailable Encounter HQ Jeramyr_soledad(DEBRA) [id number] Date(s): 12/30/16 - 12/30/16 [facility] [address] [place] [address]- [phone] Discharge Disposition: Home or Self Care Attending Physician: Hung Levy MD Referring Physician: Hung Levy MD Vital Signs No data available for this section Problem List No data available for this section Allergies, Adverse Reactions, Alerts No data available for this section Medications No data available for this section Results BODY FLUIDS Most recent to 1 oldest [Reference Range]: Glucose CSF [45-80 56 mg/dL mg/dL] (12/30/16 10:34 AM) Protein CSF [15-45 47 mg/dL mg/dL] *HI* (12/30/16 10:34 AM) Tube Num CSF 4 *NA* (12/30/16 10:34 AM) Color CSF Colorless [Colorless] (12/30/16 10:34 AM) Clarity CSF [Clear] Clear (12/30/16 10:34 AM) Supernat CSF Colorless [Colorless] (12/30/16 10:34 AM) RBC CSF [0-0 /mm3] 1 /mm3 *HI* (12/30/16 10:34 AM) WBC CSF [0-5 /mm3] 0 /mm3 (12/30/16 10:34 AM) Immunizations No data available for this section Procedures No data available for this section Social History No data available for this section Assessment and Plan No data available for this section
--- OUTSIDE RECORDS SUMMARY | 2018-12-24 06:27 | XMS REPORT | Summary of Care ---
Author Author [facility] Organization [facility] Address Unknown Phone Unavailable Encounter [facility] Suresh(DEBRA) [id number] Date(s): 12/09/17 - 12/09/17 [id number] [place] [address]- [phone] Attending Physician: Prasanth Morris MD Referring Physician: Prasanth Morris MD Vital Signs No data available for this section Problem List Condition Effective Dates Status Health Status Informant Acid Resolved reflux(Confirmed) Allergies, Adverse Reactions, Alerts Substance Reaction Severity Status NKFA Active NKDA Active Medications No data available for this section Results BODY FLUIDS Most recent to 1 oldest [Reference Range]: Glucose CSF [45-80 60 mg/dL mg/dL] (12/09/17 9:36 AM) Protein CSF [15-45 29 mg/dL mg/dL] (12/09/17 9:36 AM) Tube Num CSF See Note 1 (12/09/17 9:36 AM) Color CSF Colorless [Colorless] (12/09/17 9:36 AM) Clarity CSF [Clear] Clear (12/09/17 9:36 AM) Supernat CSF Colorless [Colorless] (12/09/17 9:36 AM) RBC CSF [0-0 /mm3] 7 /mm3 *HI* (12/09/17 9:36 AM) WBC CSF [0-5 /mm3] 0 /mm3 (12/09/17 9:36 AM) 1Result Comment: Only one tube received Immunizations Given and Recorded Vaccine Date Status Refusal Reason pneumococcal 13-valent vaccine 12/10/17 Given influenza virus vaccine, inactivated 12/10/17 Given Procedures Procedure Date Related Diagnosis Body Site Status Unilateral repair of inguinal hernia Completed Social History Social History Type Response Smoking Status Never smoker; Ready to change: No; Exposure to Tobacco Smoke None; Cigarette Smoking Last 365 Days No; Reg Smoking Cessation Counseling Yes entered on: 12/03/17 Assessment and Plan No data available for this section
--- OUTSIDE RECORDS SUMMARY | 2018-12-24 06:27 | XMS REPORT | Summary of Care ---
Author Author [facility] Organization [facility] Address Unknown Phone Unavailable Encounter ESTUARDO Prince(FIN) [id number] Date(s): 12/09/17 - 12/10/[address] [address]- Encounter Diagnosis (Idiopathic) normal pressure hydrocephalus (Final) - 02/09/18 Elevated white blood cell count, unspecified (Final) - Essential (primary) hypertension (Final) - Benign prostatic hyperplasia without lower urinary tract symptoms (Final) - Spondylosis, unspecified (Final) - Disorder of trigeminal nerve, unspecified (Final) - Encounter for immunization (Final) - Discharge Disposition: Home or Self Care Attending Physician: John Masters MD Admitting Physician: John Masters MD Referring Physician: Prasanth Morris MD Vital Signs 1 2 3 Most recent to oldest [Reference Range]: 172.72 cm (12/03/17 11:01 AM) Height 86.9 kg (12/10/17 6:35 AM) Current Weight 98 DegF (12/03/17 11:34 AM) Temperature Oral [96.4-99.1 DegF] 131/55 mmHg (12/10/17 12:00 PM) 124/71 mmHg (12/10/17 7:00 AM) 126/99 mmHg (12/10/17 6:00 AM) Blood Pressure [90-140/60-90 mmHg] 15 BRMIN (12/10/17 12:00 PM) 13 BRMIN *LOW* (12/10/17 8:01 AM) 13 BRMIN *LOW* (12/10/17 8:00 AM) Respiratory Rate [14-20 BRMIN] 72 bpm (12/09/17 7:01 AM) 67 bpm (12/03/17 11:34 AM) Peripheral Pulse Rate [60-100 bpm] 88.182 kg (12/03/17 11:01 AM) Weight 29.56 m2 (12/03/17 11:01 AM) Body Mass Index Problem List Condition Effective Dates Status Health Status Informant Acid Resolved reflux(Confirmed) Allergies, Adverse Reactions, Alerts Substance Reaction Severity Status NKFA Active NKDA Active Medications 1/2NS + KCL 20mEq/L 1000ml (Premix) 1,000 mL 1,000 mL, Rate: 75 ml/hr, Infuse over: 13.3 hr, Route: IV, Dosing Weight 88.182 kg, Total Volume: 1,000, Start date: 12/09/17 10:52:00 COGENERATION OPERATOR, Duration: 30 day, St op date: 01/08/18 10:51:00 CDT, 2.08, m2 Notes: PREMIX IV - Do Not AlterWASTE: F/P - Sink; E - Municipal Trash Bin Start Date: 12/09/17 Stop Date: 12/10/17 Status: Discontinued acetaminophen (ANES) Route: IV, Drug form: INJ, ONCE, Stop date: 12/09/17 10:18:00 COGENERATION OPERATOR Start Date: 12/09/17 Stop Date: 12/09/17 Status: Completed ANES albuterol 0.083% inhalation solution 2.49 mg, 3 mL, Route: NEB, Drug form: SOLN, Q20Min, Dosing Weight 88.182, kg, NC N Wheezing, Priority: STAT, Start date: 12/09/17 8:44:00 COGENERATION OPERATOR, Duration: 30 day, Stop date: 01/08/18 9:43:00 CDT Notes: SEE RT DOCUMENTATION (Same as: Jennifer) Start Date: 12/09/17 Stop Date: 12/09/17 Status: Discontinued ANES atropine 0.2 mg, 0.5 mL, Route: IVP, Drug form: INJ, Q5Min, Dosing Weight 88.182, kg, PRN Other -See Comment, as needed; for symptomatic pulse rate < 80% of mean 50 BPM, Start date: 12/09/17 8:44:00 COGENERATION OPERATOR, Duration: 30 day, Stop date: 01/08/18 9:43:00 CDT Notes: MEDICATION WASTE Product Size: 8 mgProduct Wasted: ___ mg Start Date: 12/09/17 Stop Date: 12/09/17 Status: Discontinued ANES dexamethasone 4 mg, 1 mL, Route: IVP, Drug form: INJ, ONCE, Dosing Weight 88.182, kg, PRN Naus ea & Vomiting, Start date: 12/09/17 8:44:00 COGENERATION OPERATOR Notes: Concentration: 4mg/ml Start Date: 12/09/17 Stop Date: 12/09/17 Status: Discontinued ANES diphenhydrAMINE 12.5 mg, 0.25 mL, Route: IVP, Drug form: INJ, Q6H, Dosing Weight 88.182, kg, PRN Itching, Start date: 12/09/17 8:44:00 COGENERATION OPERATOR, Duration: 30 day, Stop date: 01/08/18 8:43:00 CDT Notes: (Same as: Benadryl) Start Date: 12/09/17 Stop Date: 12/09/17 Status: Discontinued ANES ePHEDrine 5 mg, 1 mL, Route: IVP, Drug form: INJ, Q5Min, Dosing Weight 88.182, kg, PRN Low Blood Pressure, Start date: 12/09/17 8:44:00 COGENERATION OPERATOR, Duration: 30 day, Stop date: 01/08/18 9:43:00 CDT Notes: final concentration 5 mg/mL Start Date: 12/09/17 Stop Date: 12/09/17 Status: Discontinued ANES esmolol 10 mg, 1 mL, Route: IVP, Drug form: INJ, Q5Min, Dosing Weight 88.182, kg, PRN Ot her -See Comment, Start date: 12/09/17 8:44:00 COGENERATION OPERATOR, Duration: 5 doses or times, Stop date: Limited # of times Notes: (Same as: Brevibloc) Start Date: 12/09/17 Stop Date: 12/09/17 Status: Discontinued ANES flumazenil 0.2 mg, 2 mL, Route: IVP, Drug form: INJ, PRN, Dosing Weight 88.182, kg, PRN Charles zodiazepine Reversal, Initial dose, Start date: 12/09/17 8:44:00 COGENERATION OPERATOR, Duration: 30 day, Stop date: 01/08/18 9:43:00 CDT Notes: (Same as: Romazicon) Start Date: 12/09/17 Stop Date: 12/09/17 Status: Discontinued ANES glycopyrrolate 0.2 mg, 1 mL, Route: IVP, Drug form: INJ, Q5Min, Dosing Weight 88.182, kg, PRN B radycardia, Start date: 12/09/17 8:44:00 COGENERATION OPERATOR, Duration: 3 doses or times, Stop d ate: Limited # of times Notes: (Same as: Leif) Start Date: 12/09/17 Stop Date: 12/09/17 Status: Discontinued ANES hydrALAZINE 10 mg, 0.5 mL, Route: IVP, Drug form: INJ, Q20Min, Dosing Weight 88.182, kg, PRN Elevated BP, Start date: 12/09/17 8:44:00 COGENERATION OPERATOR, Duration: 2 doses or times, Stop date: Limited # of times Notes: (Same as: Apresoline)Push over 5 minutes Start Date: 12/09/17 Stop Date: 12/09/17 Status: Discontinued ANES HYDROmorphone 0.5 mg, 0.5 mL, Route: IVP, Drug form: INJ, Q5Min, Dosing Weight 88.182, kg, PRN Pain Score 7-10, Start date: 12/09/17 8:44:00 COGENERATION OPERATOR, Duration: 4 doses or times, Stop date: Limited # of times Start Date: 12/09/17 Stop Date: 12/09/17 Status: Discontinued ANES labetalol 10 mg, 2 mL, Route: IVP, Drug form: INJ, Q5Min, Dosing Weight 88.182, kg, PRN El evated BP, Start date: 12/09/17 8:44:00 COGENERATION OPERATOR, Duration: 5 doses or times, Stop da te: Limited # of times Notes: (Same as: Normodyne, Trandate)Push over 2 minutes Give bolus over 2-3 mi nutes. Start Date: 12/09/17 Stop Date: 12/09/17 Status: Discontinued ANES metoprolol 1 mg, 1 mL, Route: IVP, Drug form: INJ, Q5Min, Dosing Weight 88.182, kg, PRN Oth er -See Comment, Start date: 12/09/17 8:44:00 COGENERATION OPERATOR, Duration: 5 doses or times, S top date: Limited # of times Notes: (Same as: Lopressor)Push over 2 minutes Start Date: 12/09/17 Stop Date: 12/09/17 Status: Discontinued ANES morphine Sulfate 4 mg, 2 mL, Route: IVP, Drug form: INJ, Q5Min, Dosing Weight 88.182, kg, PRN Chari n Score 7-10, Start date: 12/09/17 8:44:00 COGENERATION OPERATOR, Duration: 3 doses or times, Stop date: Limited # of times Notes: (Same as:MORPhine Sulfate) Start Date: 12/09/17 Stop Date: 12/09/17 Status: Discontinued ANES morphine Sulfate 2 mg, 1 mL, Route: IVP, Drug form: INJ, Q5Min, Dosing Weight 88.182, kg, PRN Chari n Score 4-6, Start date: 12/09/17 8:44:00 COGENERATION OPERATOR, Duration: 5 doses or times, Stop date: Limited # of times Notes: (Same as:MORPhine Sulfate) Start Date: 12/09/17 Stop Date: 12/09/17 Status: Discontinued ANES naloxone 0.4 mg, 1 mL, Route: IVP, Drug form: INJ, Q2MIN, Dosing Weight 88.182, kg, PRN N arcotic Reversal, Start date: 12/09/17 8:44:00 COGENERATION OPERATOR, Duration: 8 doses or times, Stop date: Limited # of times Notes: Same as Narcan Start Date: 12/09/17 Stop Date: 12/09/17 Status: Discontinued ANES ondansetron 4 mg, 2 mL, Route: IVP, Drug form: INJ, ONCE, Dosing Weight 88.182, kg, PRN Naus ea & Vomiting, Start date: 12/09/17 8:44:00 COGENERATION OPERATOR Notes: (Same as: Axel) MEDICATION WASTE Product Size: 4 mgProduct Was carlyn: ___ mg Start Date: 12/09/17 Stop Date: 12/09/17 Status: Completed ANES oxyCODONE 5 mg, 5 mL, Route: NG, Drug form: LIQ, Q4H, Dosing Weight 88.182, kg, PRN Pain S core 4-6, Start date: 12/09/17 8:44:00 COGENERATION OPERATOR, Duration: 30 day, Stop date: 8 8:43:00 CDT Notes: (Same as: 'Roxicodone) Start Date: 12/09/17 Stop Date: 12/09/17 Status: Discontinued ANES oxyCODONE 5 mg, 1 tab, Route: PO, Drug form: TAB, Q4H, Dosing Weight 88.182, kg, PRN Pain Score 4-6, Start date: 12/09/17 8:44:00 COGENERATION OPERATOR, Duration: 30 day, Stop date: 8:43:00 CDT Notes: (Same as: Roxicodone) Start Date: 12/09/17 Stop Date: 12/09/17 Status: Discontinued ANES racepinephrine 11.25 mg, 0.5 mL, Route: NEB, Drug Form: SOLN, Dosing Weight 88.182, kg, PRN, NC N Shortness of breath, Start date: 12/09/17 8:44:00 COGENERATION OPERATOR, Duration: 30 day, Stop date: 01/08/18 9:43:00 CDT Notes: (racepinephrine *2.25% inh 0.5ml SOLN) (Same as:S2) Start Date: 12/09/17 Stop Date: 12/09/17 Status: Discontinued ceFAZolin (ANES) Route: IV, Drug form: INJ, ONCE, Stop date: 12/09/17 9:13:00 COGENERATION OPERATOR Start Date: 12/09/17 Stop Date: 12/09/17 Status: Completed ceFAZolin (SCIP) 2 gm, Route: IVPB, Drug form: INJ, Q8H, Dosing Weight 88.182, kg, Start date: 16:00:00 COGENERATION OPERATOR, Duration: 3 doses or times, Stop date: 12/10/17 8:00:00 COGENERATION OPERATOR , ABX Indication: Surgical Prophylaxis Start Date: 12/09/17 Stop Date: 12/09/17 Status: Deleted ceFAZolin (SCIP) + sterile water 20 mL 2 gm, Route: IVPB, ABXQ8H, Dosing Weight 88.182, kg, Start date: 12/09/17 18:00: 00 COGENERATION OPERATOR, Duration: 3 doses or times, Stop date: 12/10/17 10:00:00 COGENERATION OPERATOR, ABX Indica tion: Surgical Prophylaxis Notes: Cefazolin 2gm - push each vial over 3 minutes for a total of 6 minutes. G bianca within one hour of reconstitutionReconstitute Cefazolin 1 g vial: 10 mL of S WFI Shake immediately & vigorouslypharmacy re-entry for dosing time adjustment Start Date: 12/09/17 Stop Date: 12/10/17 Status: Completed Colace 100 mg oral capsule 100 mg=1 cap, PO, BID, # 20 cap, 0 Refill(s) Start Date: 12/10/17 Status: Ordered dexamethasone (ANES) Route: IV, Drug form: INJ, ONCE, Stop date: 12/09/17 9:13:00 COGENERATION OPERATOR Start Date: 12/09/17 Stop Date: 12/09/17 Status: Completed fentaNYL (ANES) Route: IV, Drug form: INJ, ONCE, Stop date: 12/09/17 9:13:00 COGENERATION OPERATOR Start Date: 12/09/17 Stop Date: 12/09/17 Status: Completed glycopyrrolate (ANES) Route: IV, Drug form: INJ, ONCE, Stop date: 12/09/17 10:33:00 COGENERATION OPERATOR Start Date: 12/09/17 Stop Date: 12/09/17 Status: Completed hydrALAZINE 20 mg, 1 mL, Route: IVP, Drug form: INJ, Q4H, Dosing Weight 88.182, kg, PRN Elev ated BP, Start date: 12/09/17 17:47:00 COGENERATION OPERATOR, Duration: 30 day, Stop date: 8 17:46:00 CDT Notes: (Same as: Apresoline)Push over 5 minutes Start Date: 12/09/17 Stop Date: 12/10/17 Status: Discontinued Isolyte S PH 7.4 (ANES) 1000 mL Route: IV, Total Volume: 1,000, Start date: 12/09/17 8:07:00 COGENERATION OPERATOR, Stop date: 9:07:00 COGENERATION OPERATOR Start Date: 12/09/17 Stop Date: 12/09/17 Status: Completed lidocaine (ANES) Route: IV, Drug form: INJ, ONCE, Stop date: 12/09/17 9:13:00 COGENERATION OPERATOR Start Date: 12/09/17 Stop Date: 12/09/17 Status: Completed Lipitor 40 mg, 1 tab, Route: PO, Drug form: TAB, Bedtime, Dosing Weight 88.182, kg, Star t date: 12/09/17 21:00:00 COGENERATION OPERATOR, Duration: 30 day, Stop date: 01/07/18 21:00:00 CD T Notes: (Same as: Lipitor) Start Date: 12/09/17 Stop Date: 12/10/17 Status: Discontinued metoprolol (ANES) Route: IV, Drug form: INJ, ONCE, Stop date: 12/09/17 9:13:00 COGENERATION OPERATOR Start Date: 12/09/17 Stop Date: 12/09/17 Status: Completed metoprolol 5 mg/5 ml INJ 5 mg, 5 mL, Route: IVP, Drug form: INJ, ONCE, Dosing Weight 88.182, kg, Start da te: 12/09/17 16:06:00 COGENERATION OPERATOR, Stop date: 12/09/17 16:06:00 COGENERATION OPERATOR Notes: (Same as: Lopressor)Push over 2 minutes Start Date: 12/09/17 Stop Date: 12/09/17 Status: Completed metoprolol tartrate 25 mg, 1 tab, Route: PO, Drug form: TAB, Q12H, Dosing Weight 88.182, kg, Start d ate: 12/09/17 23:00:00 COGENERATION OPERATOR, Duration: 30 day, Stop date: 01/08/18 21:00:00 CDT Notes: (Same as: Lopressor) Start Date: 12/09/17 Stop Date: 12/10/17 Status: Discontinued morphine Sulfate 2 mg, 0.5 mL, Route: IVP, Drug form: SOLN, Q2H, Dosing Weight 88.182, kg, PRN Pa in Score 7-10, Start date: 12/09/17 10:52:00 COGENERATION OPERATOR, Duration: 30 day, Stop date: 0 01/08/18 10:51:00 CDT Notes: (Same as: MORPhine Sulfate) Start Date: 12/09/17 Stop Date: 12/10/17 Status: Discontinued neostigmine (ANES) Route: IV, Drug form: INJ, ONCE, Stop date: 12/09/17 10:33:00 COGENERATION OPERATOR Start Date: 12/09/17 Stop Date: 12/09/17 Status: Completed Alamo 10/325 oral tablet 1 tab, Route: PO, Drug Form: TAB, Dosing Weight 88.182, kg, Q4H, PRN Pain Score 4-6, Start date: 12/09/17 10:52:00 COGENERATION OPERATOR, Duration: 30 day, Stop date: 01/08/18 10 :51:00 CDT Notes: Do not exceed 4gm/day of acetaminophen. (Same as: Alamo 325/10) Start Date: 12/09/17 Stop Date: 12/09/17 Status: Discontinued Alamo 10/325 oral tablet 1 tab, Route: PO, Drug Form: TAB, Dosing Weight 88.182, kg, Q4H, PRN Pain Score 4-6, Start date: 12/09/17 10:52:00 COGENERATION OPERATOR, Duration: 30 day, Stop date: 01/08/18 10 :51:00 CDT Notes: Do not exceed 4gm/day of acetaminophen. (Same as: Alamo 325/10) Start Date: 12/09/17 Stop Date: 12/10/17 Status: Discontinued ondansetron (ANES) Route: IV, Drug form: INJ, ONCE, Stop date: 12/09/17 10:33:00 COGENERATION OPERATOR Start Date: 12/09/17 Stop Date: 12/09/17 Status: Completed propofol (ANES) Route: IV, Drug form: INJ, ONCE, Stop date: 12/09/17 9:13:00 COGENERATION OPERATOR Start Date: 12/09/17 Stop Date: 12/09/17 Status: Completed rocuronium (ANES) Route: IV, Drug form: INJ, ONCE, Stop date: 12/09/17 9:13:00 COGENERATION OPERATOR Start Date: 12/09/17 Stop Date: 12/09/17 Status: Completed Saline Flush 0.9% 10 ml, Route: IVP, Drug Form: INJ, Dosing Weight 88.182, kg, PRN, PRN Line Flush , Start date: 12/09/17 11:23:00 COGENERATION OPERATOR, Duration: 30 day, Stop date: 01/08/18 12:22 :00 CDT Notes: (Same as: BD Posiflush) Start Date: 12/09/17 Stop Date: 12/10/17 Status: Discontinued Saline Flush 0.9% 10 ml, Route: IVP, Drug Form: INJ, Dosing Weight 88.182, kg, Q12H, Start date: 0 12/09/17 21:00:00 COGENERATION OPERATOR, Duration: 30 day, Stop date: 01/08/18 9:00:00 CDT Notes: (Same as: BD Posiflush) Start Date: 12/09/17 Stop Date: 12/10/17 Status: Discontinued Sodium Chloride 0.9% IV 250 mL, Route: IVPB, Start date: 12/09/17 15:54:00 COGENERATION OPERATOR, Duration: 30 day, Stop d ate: 01/08/18 16:53:00 CDT, PRN Line Flush Start Date: 12/09/17 Stop Date: 12/10/17 Status: Discontinued Tylenol with Codeine #3 oral tablet 1 tab, PO, Q6H, PRN Pain, X 10 day, # 40 tab, 0 Refill(s), given to patient Start Date: 12/10/17 Stop Date: 12/20/17 Status: Completed Zofran 4 mg, 1 tab, Route: PO, Drug form: TAB, Q8H, Dosing Weight 88.182, kg, PRN Nause a, Start date: 12/09/17 10:52:00 COGENERATION OPERATOR, Duration: 30 day, Stop date: 01/08/18 10:5 1:00 CDT Notes: (Same as: Zofran) Start Date: 12/09/17 Stop Date: 12/10/17 Status: Discontinued Zofran 4 mg, 2 mL, Route: IVP, Drug form: INJ, Q8H, Dosing Weight 88.182, kg, PRN Nause a, Start date: 12/09/17 10:52:00 COGENERATION OPERATOR, Duration: 30 day, Stop date: 01/08/18 10:5 1:00 CDT Notes: (Same as: Zofran) MEDICATION WASTE Product Size: 4 mgProduct Was carlyn: ___ mg Start Date: 12/09/17 Stop Date: 12/10/17 Status: Discontinued Results BLOOD BANK RESULTS 1 2 3 Most recent to oldest [Reference Range]: O NEG *Unknown* (12/03/17 11:06 AM) ABO/Rh Negative (12/03/17 11:06 AM) Antibody Scrn ELECTROLYTES 1 2 3 Most recent to oldest [Reference Range]: 141 mEq/L (12/10/17 2:36 AM) 139 mEq/L (12/09/17 12:29 PM) 142 mEq/L (12/03/17 11:06 AM) Sodium Lvl [135-145 mEq/L] 4.2 mEq/L (12/10/17 2:36 AM) 3.8 mEq/L (12/09/17 12:29 PM) 4.0 mEq/L (12/03/17 11:06 AM) Potassium Lvl [3.5-5.1 mEq/L] 107 mEq/L (12/10/17 2:36 AM) 104 mEq/L (12/09/17 12:29 PM) 108 mEq/L (12/03/17 11:06 AM) Chloride Lvl [95-109 mEq/L] 25 mEq/L (12/10/17 2:36 AM) 28 mEq/L (12/09/17 12:29 PM) 29 mEq/L (12/03/17 11:06 AM) CO2 [24-32 mEq/L] 13.2 mEq/L (12/10/17 2:36 AM) 10.8 mEq/L (12/09/17 12:29 PM) 9.0 mEq/L *LOW* (12/03/17 11:06 AM) AGAP [10.0-20.0 mEq/L] CHEM PANEL 1 2 3 Most recent to oldest [Reference Range]: 0.80 mg/dL (12/10/17 2:36 AM) 0.70 mg/dL (12/09/17 12:29 PM) 0.70 mg/dL (12/03/17 11:06 AM) Creatinine Lvl [0.50-1.40 mg/dL] 93 mL/min/1.73m2 1 *NA* (12/10/17 2:36 AM) 98 mL/min/1.73m2 2 *NA* (12/09/17 12:29 PM) 98 mL/min/1.73m2 3 *NA* (12/03/17 11:06 AM) eGFR 12 mg/dL (12/10/17 2:36 AM) 14 mg/dL (12/09/17 12:29 PM) 14 mg/dL (12/03/17 11:06 AM) BUN [7-22 mg/dL] 20 (12/09/17 12:29 PM) B/C Ratio [6-25] 127 mg/dL *HI* (12/10/17 2:36 AM) 133 mg/dL *HI* (12/09/17 12:29 PM) 147 mg/dL *HI* (12/03/17 11:06 AM) Glucose Lvl [70-99 mg/dL] 7.4 g/dL (12/09/17 12:29 PM) Total Protein [6.4-8.4 g/dL] 3.7 g/dL (12/09/17 12:29 PM) Albumin Lvl [3.5-5.0 g/dL] 3.7 g/dL (12/09/17 12:29 PM) Globulin [2.7-4.2 g/dL] 1.0 (12/09/17 12:29 PM) A/G Ratio [0.7-1.6] 8.6 mg/dL (12/10/17 2:36 AM) 8.5 mg/dL (12/09/17 12:29 PM) 8.7 mg/dL (12/03/17 11:06 AM) Calcium Lvl [8.5-10.5 mg/dL] 2.5 mg/dL (12/09/17 12:29 PM) Phosphorus [2.5-4.5 mg/dL] 2.3 mg/dL (12/09/17 12:29 PM) Magnesium Lvl [1.8-2.4 mg/dL] 55 unit/L (12/09/17 12:29 PM) ALT [0-65 unit/L] 23 unit/L (12/09/17 12:29 PM) AST [0-37 unit/L] 68 unit/L (12/09/17 12:29 PM) Alk Phos [39-136 unit/L] 0.5 mg/dL (12/09/17 12:29 PM) Bili Total [0.2-1.3 mg/dL] 1Result Comment: The eGFR is calculated using [...] be mul tiplied by the estimated BMI. 2Result Comment: The eGFR is calculated using the [...] be mul tiplied by the estimated BMI. 3Result Comment: The eGFR is calculated using the [...] be mul tiplied by the estimated BMI. LIPIDS 1 2 3 Most recent to oldest [Reference Range]: 3.76 *LOW* (12/09/17 12:29 PM) CHD Risk [4.00-7.30] 218 mg/dL *HI* (12/09/17 12:29 PM) Chol [<=199 mg/dL] 113 mg/dL (12/09/17 12:29 PM) Trig [<=149 mg/dL] 58 mg/dL *LOW* (12/09/17 12:29 PM) HDL [>=61 mg/dL] 137 mg/dL *HI* (12/09/17 12:29 PM) LDL (Calculated) [<=99 mg/dL] 23 *NA* (12/09/17 12:29 PM) VLDL SPECIAL CHEMISTRY 1 2 3 Most recent to oldest [Reference Range]: 4.7 % (12/09/17 12:29 PM) Hgb A1C [<=5.6 %] PARATHYROID PROFILE 1 2 3 Most recent to oldest [Reference Range]: 1.06 mMol/L (12/09/17 12:29 PM) Ca Ion WB [1.05-1.25 mMol/L] 1.02 mMol/L *LOW* (12/09/17 12:29 PM) Ca Norm WB [1.05-1.25 mMol/L] IMMUNOLOGY 1 2 3 Most recent to oldest [Reference Range]: Negative *NA* (12/03/17 11:06 AM) HIV Ag/Ab 4th Gen [Negative] HEMATOLOGY 1 2 3 Most recent to oldest [Reference Range]: 13.2 K/CMM *HI* (12/10/17 2:36 AM) 12.9 K/CMM *HI* (12/09/17 12:29 PM) 6.9 K/CMM (12/03/17 11:06 AM) WBC [3.7-10.4 K/CMM] 4.29 M/CMM *LOW* (12/10/17 2:36 AM) 4.73 M/CMM (12/09/17 12:29 PM) 4.64 M/CMM *LOW* (12/03/17 11:06 AM) RBC [4.70-6.10 M/CMM] 12.5 g/dL *LOW* (12/10/17 2:36 AM) 13.4 g/dL *LOW* (12/09/17 12:29 PM) 13.6 g/dL *LOW* (12/03/17 11:06 AM) Hgb [14.0-18.0 g/dL] 37.4 % *LOW* (12/10/17 2:36 AM) 40.9 % *LOW* (12/09/17 12:29 PM) 40.5 % *LOW* (12/03/17 11:06 AM) Hct [42.0-54.0 %] 87.1 fL (12/10/17 2:36 AM) 86.4 fL (12/09/17 12:29 PM) 87.3 fL (12/03/17 11:06 AM) MCV [80.0-94.0 fL] 29.1 pg (12/10/17 2:36 AM) 28.4 pg (12/09/17 12:29 PM) 29.3 pg (12/03/17 11:06 AM) MCH [27.0-31.0 pg] 33.4 g/dL (12/10/17 2:36 AM) 32.8 g/dL (12/09/17 12:29 PM) 33.5 g/dL (12/03/17 11:06 AM) MCHC [32.0-36.0 g/dL] 13.1 % (12/10/17 2:36 AM) 13.3 % (12/09/17 12:29 PM) 13.1 % (12/03/17 11:06 AM) RDW [11.5-14.5 %] 9.2 fL (12/10/17 2:36 AM) 9.6 fL (12/09/17 12:29 PM) 9.2 fL (12/03/17 11:06 AM) MPV [7.4-10.4 fL] 222 K/CMM (12/10/17 2:36 AM) 206 K/CMM (12/09/17 12:29 PM) 217 K/CMM (12/03/17 11:06 AM) Platelet [133-450 K/CMM] 79.6 % *HI* (12/10/17 2:36 AM) 90.7 % *HI* (12/09/17 12:29 PM) 62.7 % (12/03/17 11:06 AM) Segs [45.0-75.0 %] 12.4 % *LOW* (12/10/17 2:36 AM) 8.1 % *LOW* (12/09/17 12:29 PM) 27.0 % (12/03/17 11:06 AM) Lymphocytes [20.0-40.0 %] 7.8 % (12/10/17 2:36 AM) 1.0 % *LOW* (12/09/17 12:29 PM) 7.6 % (12/03/17 11:06 AM) Monocytes [2.0-12.0 %] 0.2 % (12/09/17 12:29 PM) 2.4 % (12/03/17 11:06 AM) Eosinophils [0.0-4.0 %] 0.2 % (12/10/17 2:36 AM) 0.0 % (12/09/17 12:29 PM) 0.3 % (12/03/17 11:06 AM) Basophils [0.0-1.0 %] 10.5 K/CMM *HI* (12/10/17 2:36 AM) 11.7 K/CMM *HI* (12/09/17 12:29 PM) 4.4 K/CMM (12/03/17 11:06 AM) Segs-Bands # [1.5-8.1 K/CMM] 1.6 K/CMM (12/10/17 2:36 AM) 1.0 K/CMM (12/09/17 12:29 PM) 1.9 K/CMM (12/03/17 11:06 AM) Lymphocytes # [1.0-5.5 K/CMM] 1.0 K/CMM *HI* (12/10/17 2:36 AM) 0.1 K/CMM (12/09/17 12:29 PM) 0.5 K/CMM (12/03/17 11:06 AM) Monocytes # [0.0-0.8 K/CMM] 0.0 K/CMM (12/09/17 12:29 PM) 0.2 K/CMM (12/03/17 11:06 AM) Eosinophils # [0.0-0.5 K/CMM] 0.0 K/CMM (12/09/17 12:29 PM) 0.0 K/CMM (12/03/17 11:06 AM) Basophils # [0.0-0.2 K/CMM] Normal (12/09/17 12:29 PM) RBC Morph Normal (12/09/17 12:29 PM) Plt Morph 13.1 seconds (12/09/17 12:29 PM) 13.3 seconds (12/03/17 11:06 AM) PT [12.0-14.7 seconds] 0.99 (12/09/17 12:29 PM) 1.01 (12/03/17 11:06 AM) INR [0.85-1.17] 30.6 seconds (12/09/17 12:29 PM) 30.1 seconds (12/03/17 11:06 AM) PTT [22.9-35.8 seconds] BACTERIAL - SEROLOGY 1 2 3 Most recent to oldest [Reference Range]: Negative (12/09/17 12:45 PM) MRSA by PCR Immunizations Given and Recorded Vaccine Date Status [...] Yes entered on: 12/03/17 Assessment and Plan Extracted from: Title: Neurosurgery Progress Note * Author: Cassie Montemayor MSN Date: 12/10/17 Impression and Plan This is a 67 year old gentleman with PMH of peritonsillar abscess who was admitted yesterday for elective surgery of normal pressure hydrocephalus now s/p PULL TAB DEALER shunt placement by Dr. Prasanth Morris on 12/09/17. POD #1 -VS stable, BP elevated possibly secondary to post op pain, defer management to CCM team -Afebrile, leukocytosis probably secondary to steroids -Patient is tolerating PO diet, ambulating in hallway and voiding. -Discharge Rx (Tylenol #3, Colace) in chart -Post op discharge instructions (verbal and written) given to patient and and all questions answered to their satisfaction -Patient reports he has a rolling walker at home and doesn't need another one -Patient instructed to follow up with Dr. Prasanth Morris in 10-14 days for post op follow up. -Ok to discharge patient home from neurosurgery standpoint when cleared by CCM team. Patient seen, examined and discussed in detail with Dr. Prasanth Morris and in agreement with above plan. Cassie Montemayor MSN, CELL SUPPORT OPERATOR, ACNP- Neurosurgery Nurse Practitioner Extracted from: Title: [facility] Critical Care History & Author: Kulwant Foster WO[employer] HEEL [employer]AP RUBBER Date: 12/09/17 Physical Patient: LENORA TOTH JR Age: 67 years Sex: Male : 1950 Associated Diagnoses: None Author: Kulwant Foster [employer] HE[employer] RUBBER Hosp Day # 1 ICU Day # 1 Vent Day # NA 24 hour Significant Events: s/p PULL TAB DEALER shunt placement Today's Plan/Goals: - Hourly neuro check -Complete labs HPI: This is a 67-YO gentleman with past medical history of hypertension, cervical spondylosis, BPH, trigeminal nerve disorder admitted to ICU for postop observation status post schedule PULL TAB DEALER shunt placement. Patient stated that he did not have any significant symptoms preop and the normal pressure hydrocephalus was incidentally found during a cervical CT. PMH: As HPI PSH: Hernia repair Social: Social alcohol intake, denies tobacco use or illicit drug use Family: None Allergies: NKA Medications: See MAR Reconcilliation Assessment And Plan: Neuro: Rass=0CAM-ICU=negative Pain=0 /10 Normal pressure hydrocephalus status post PULL TAB DEALER shunt placement -Neuro checks hourly - As needed [place] and morphine for pain per neurosurgery Pulm: No issue CV: Hypertension -Not taking any home meds -Normotensive at this time Heme: No issues Renal / Fluids / Electrolytes: -Check electrolytes ID: No issues -Ancef for SCIP GI: No issues Last BM=[employer]INGER[employer]IL SCULPTURER Nutrition: Regular diet as tolerated Endo: No issues Muscoloskeletal / Skin: No issues GI Prophylaxis:Not indicated DVT Prophylaxis:SCDs/no anticoagulant until cleared by neurosurgery Disposition: Patient require ICU monitoring RN Bundles: (must document DOI & reason for continuation) CVC:NA [place]:NA Vent:NA Mobility Level & Plan:PT-level 5 Family Updated:Patient updated Advanced Care Planning: - Advanced care plan or surrogate decision maker discussed and documented: - Code Status:Full code - Surrogate:Ismael Lyn Discharge Plan: Where:Home When:2-3 days Barriers:None Supportive Medicine Screening Tool Performed: NA ICU Daily Summary: 12/09 -status post PULL TAB DEALER shunt Review of Systems Gastrointestinal: Abdominal pain: The pain is mild, Characterized as ( Intermittent ). Integumentary: right occipital dressing, dry and intact. 13-point ROS negative excpet mentioned above Physical Examination VS/Measurements Vital Signs (last 24 hrs) Last Charted Heart Rate Jasjpl12 bpm (DEC 09 13:15) Resp Rate H 21BRMIN (DEC 09 13:15) ZVH728 mmHg (DEC 09 13:15) DBPL 43mmHg (DEC 09 13:15) MjD150 % (DEC 09:15) Intake and Output I/O Intake OutputBalance 12/09/20177a-3p 866.00 0.00 866.00As of 13:42 3p-11p 0.00 0.00 0.00 11p-7a 0.00 0.00 0.00 Totals 866.00 0.00 866.00 12/08/20177a-3p 0.00 0.00 0.00 3p-11p 0.00 0.00 0.00 11p-7a 0.00 0.00 0.00 Totals 0.00 0.00 0.00 12/07/20177a-3p 0.00 0.00 0.00 3p-11p 0.00 0.00 0.00 11p-7a 0.00 0.00 0.00 Totals 0.00 0.00 0.00 General: Alert and oriented. Eye: Pupils are equal, round and reactive to light. HENT: Normocephalic. Neck: Supple. Respiratory: Lungs are clear to auscultation, Respirations are non-labored, Breath sounds are equal, Symmetrical chest wall expansion. Cardiovascular: Normal rate, Regular rhythm, Normal peripheral perfusion, No edema. Gastrointestinal: Soft, Non-tender, Non-distended, Normal bowel sounds. Genitourinary: No costovertebral angle tenderness. Musculoskeletal Normal range of motion. Normal strength. Integumentary: Warm, Dry. Neurologic: Alert, Oriented, Normal sensory, Normal motor function, No focal deficits. Cognition and Speech: Oriented, Speech clear and coherent. Psychiatric: Cooperative. Review / Management Results review: Labs (Last four charted values) WBC H 12.9(DEC 09)6.9(DEC 03) Hgb L 13.4(DEC 09)L 13.6(DEC 03) Hct L 40.9(DEC 09)L 40.5(DEC 03) Plt 206(DEC 09)217(DEC 03) Na 139(DEC 09)142(DEC 03) K 3.8(DEC 09)4.0(DEC 03) CO2 28(DEC 09)29(DEC 03) Cl 104(DEC 09)108(DEC 03) Cr 0.70(DEC 09)0.70(DEC 03) BUN 14(DEC 09)14(DEC 03) Glucose Random H 133(DEC 09)H 147(NOV 08) Mg 2.3(DEC 09) Phos 2.5(DEC 09) Ca 8.5(DEC 09)8.7(DEC 03) PT 13.1(DEC 09)13.3(DEC 03) INR 0.99(DEC 09)1.01(DEC 03) PTT 30.6(DEC 09)30.1(DEC 03). Chest x-ray results Radiology results Professional Services Patient examined and discussed with ICU attending, Dr. Infante Addendum Attending Physician note: by I, Denise Infante MD, have seen and examined this patient on December 09, 2017. Lona Infante, agree with the WOOD HEEL FLAP RUBBER's assessment and plan as written, with my personal exceptions & Denise additions as documented in my personal note below. My note addresses my assessment of the Gul MD on patient's clinical condition, my treatment plan and medical decision making and my 12/09/2017 presence, activity and involvement with this patient throughout the day. 16:24 Critical Care Attending Note: -Patient underwent a PULL TAB DEALER shunt placement for hydrocephalus. Presents to the ICU postoperatively and remains hemodynamically stable and neurologically intact. Will perform repeat imaging per neurosurgery' orders. ROS: 9 point ROS completed with: No chest pain, no fevers, no shortness of breath, no abdominal pain. Vitals: Stable Labs, imaging, physical exam verified at the bedside. Lungs ; Abd soft; Ext no edema; neurologically without any focal deficits. A/P: Symptomatic hydrocephalus, status post PULL TAB DEALER shunt. Please refer to neurosurgery's procedure note for further details. Monitor in the ICU for any neurological compromise and or changes. Rest of the cares per the nurse practitioner's note as discussed during detailed bedside rounds FGK
--- OUTSIDE RECORDS SUMMARY | 2018-12-24 06:27 | XMS REPORT | Summary of Care ---
Author Author [facility] Organization [facility] Address Unknown Phone Unavailable Encounter ESTUARDO Prince(DEBRA) [id number] Date(s): 10/11/17 - 10/12/17 [facility] [address] [place] [address]- Discharge Diagnosis: Peritonsillar abscess Discharge Disposition: Home or Self Care Attending Physician: Wero Garcia MD Vital Signs 1 2 3 Most recent to oldest [Reference Range]: 98.1 DegF (10/12/17 11:30 AM) 100 DegF *HI* (10/12/17 2:06 AM) 100.3 DegF *HI* (10/11/17 10:48 PM) Temperature Oral [96.4-99.1 DegF] 131/106 mmHg (10/12/17 11:30 AM) 124/70 mmHg (10/12/17 10:00 AM) 116/78 mmHg (10/12/17 7:10 AM) Blood Pressure [90-140/60-90 mmHg] 16 BRMIN (10/12/17 11:30 AM) 16 BRMIN (10/12/17 10:00 AM) 18 BRMIN (10/12/17 7:10 AM) Respiratory Rate [14-20 BRMIN] 90 bpm (10/12/17 11:30 AM) 98 bpm (10/12/17 10:00 AM) 108 bpm *HI* (10/12/17 7:10 AM) Peripheral Pulse Rate [60-100 bpm] 86.364 kg (10/11/17 10:48 PM) Weight Problem List No data available for this section Allergies, Adverse Reactions, Alerts Substance Reaction Severity Status NKDA Active Medications clindamycin 600 mg, Route: IVPB, ONCE, Dosing Weight 86.364, kg, Priority: STAT, Start date: 10/12/17 2:34:00 ARCHITECTURAL INTERN, Stop date: 10/12/17 2:34:00 ARCHITECTURAL INTERN, ABX Indication: Skin/Soft Tissue Infection Start Date: 10/12/17 Stop Date: 10/12/17 Status: Completed clindamycin 300 mg oral capsule 300 mg=1 cap, PO, Q6H, X 10 day, # 40 cap, 0 Refill(s) Start Date: 10/12/17 Stop Date: 10/22/17 Status: Ordered dexamethasone 10 mg, Route: IVP, ONCE, Dosing Weight 86.364, kg, Priority: STAT, Start date: 1 12/13/16 2:33:00 ARCHITECTURAL INTERN, Stop date: 10/12/17 2:33:00 ARCHITECTURAL INTERN Start Date: 10/12/17 Stop Date: 10/12/17 Status: Completed morphine Sulfate 4 mg, Route: IVP, ONCE, Dosing Weight 86.364, kg, Priority: STAT, Start date: 2:32:00 ARCHITECTURAL INTERN, Stop date: 10/12/17 2:32:00 ARCHITECTURAL INTERN Start Date: 10/12/17 Stop Date: 10/12/17 Status: Completed Sodium Chloride 0.9% (Bolus) IV 1,000 mL, Infuse Over: 1 hr, Route: IV, ONCE, Priority: STAT, Dosing Weight 86.3 64 kg, Start date: 10/12/17 2:09:00 ARCHITECTURAL INTERN, Stop date: 10/12/17 2:09:00 ARCHITECTURAL INTERN Start Date: 10/12/17 Stop Date: 10/12/17 Status: Completed Tylenol with Codeine #3 oral tablet 1 - 2 tab, PO, Q4H, PRN Pain, X 2 day, # 20 tab, 0 Refill(s) Start Date: 10/12/17 Stop Date: 10/14/17 Status: Completed Zofran 4 mg, Route: IVP, Drug form: INJ, ONCE, Dosing Weight 86.364, kg, Priority: STAT , Start date: 10/12/17 2:32:00 ARCHITECTURAL INTERN, Stop date: 10/12/17 2:32:00 ARCHITECTURAL INTERN Start Date: 10/12/17 Stop Date: 10/12/17 Status: Completed Results ELECTROLYTES Most recent to 1 2 oldest [Reference Range]: Sodium Lvl [135-145 142 mEq/L mEq/L] (10/12/17 2:50 AM) Potassium Lvl 3.9 mEq/L [3.5-5.1 mEq/L] (10/12/17 2:50 AM) Chloride Lvl [95-109 106 mEq/L mEq/L] (10/12/17 2:50 AM) CO2 [24-32 mEq/L] 28 mEq/L (10/12/17 2:50 AM) AGAP [10.0-20.0 11.9 mEq/L mEq/L] (10/12/17 2:50 AM) CHEM PANEL Most recent to 1 2 oldest [Reference Range]: Creatinine Lvl 0.73 mg/dL [0.50-1.40 mg/dL] (10/12/17 2:50 AM) eGFR 96 mL/min/1.73m2 1 105 mL/min/1.73m2 2 *NA* *NA* (10/12/17 2:50 AM) (10/12/17 2:46 AM) BUN [7-22 mg/dL] 17 mg/dL (10/12/17 2:50 AM) Glucose Lvl [70-99 120 mg/dL mg/dL] *HI* (10/12/17 2:50 AM) POC Creatinine 0.6 mg/dL [0.5-1.4 mg/dL] (10/12/17 2:46 AM) Calcium Lvl 8.9 mg/dL [8.5-10.5 mg/dL] (10/12/17 2:50 AM) 1Result Comment: The eGFR is calculated using [...] be mul tiplied by the estimated BMI. HEMATOLOGY Most recent to 1 2 oldest [Reference Range]: WBC [3.7-10.4 K/CMM] 16.2 K/CMM *HI* (10/12/17 2:50 AM) RBC [4.70-6.10 4.72 M/CMM M/CMM] (10/12/17 2:50 AM) Hgb [14.0-18.0 g/dL] 13.7 g/dL *LOW* (10/12/17 2:50 AM) Hct [42.0-54.0 %] 41.6 % *LOW* (10/12/17 2:50 AM) MCV [80.0-94.0 fL] 88.1 fL (10/12/17 2:50 AM) MCH [27.0-31.0 pg] 29.1 pg (10/12/17 2:50 AM) MCHC [32.0-36.0 33.0 g/dL g/dL] (10/12/17 2:50 AM) RDW [11.5-14.5 %] 12.8 % (10/12/17 2:50 AM) Platelet [133-450 242 K/CMM K/CMM] (10/12/17 2:50 AM) MPV [7.4-10.4 fL] 9.1 fL (10/12/17 2:50 AM) Segs [45.0-75.0 %] 75.7 % *HI* (10/12/17 2:50 AM) Lymphocytes 13.7 % [20.0-40.0 %] *LOW* (10/12/17 2:50 AM) Monocytes [2.0-12.0 10.2 % %] (10/12/17 2:50 AM) Eosinophils [0.0-4.0 0.1 % %] (10/12/17 2:50 AM) Basophils [0.0-1.0 0.3 % %] (10/12/17 2:50 AM) Segs-Bands # 12.3 K/CMM [1.5-8.1 K/CMM] *HI* (10/12/17 2:50 AM) Lymphocytes # 2.2 K/CMM [1.0-5.5 K/CMM] (10/12/17 2:50 AM) Monocytes # [0.0-0.8 1.7 K/CMM K/CMM] *HI* (10/12/17 2:50 AM) RAPID Most recent to 1 2 oldest [Reference Range]: Grp A Strep Scr Negative [Negative] (10/12/17 2:50 AM) Immunizations No data available for this section Procedures No data available for this section Social History Social History Type Response Smoking Status Never smoker; Exposure to Tobacco Smoke None; Cigarette Smoking Last 365 Days No; Reg Smoking Cessation Counseling No Assessment and Plan No data available for this section
--- OUTSIDE RECORDS SUMMARY | 2018-12-24 06:28 | XMS REPORT ---
Author Author [facility] Organization [facility] Address Unknown Phone Unavailable Care Team Providers Care [employer]p [employer] Name Role Phone AYDEN AVILA Unavailable Unavailable Payers Payer Name Policy Type Policy Number Effective Date Expiration Date Problems This patient has no known problems. Allergies, Adverse Reactions, Alerts This patient has no known allergies or adverse reactions. Medications This patient has no known medications. Results Test Description Test Time Test Comments Text Results Atomic Results Result Comments CHEST 2 VIEWS 2018-12-22 11:09:[address] [address] Patient Name: LENORA BUNN MR #: [id number] : 1950 Age/Sex: 68/M Req #: [id number] Adm Physician: Ordered by: AYDEN AVILA MD Report #: [id number] Location: OR Room/Bed: Procedure: [id number] DX/CHEST 2 VIEWS Exam Date: 12/22/18 Exam Time: 1035 REPORT STATUS: Signed EXAMINATION: CHEST 2 VIEWS INDICATION: Pre-admit. COMPARISON: None FINDINGS: TUBES and LINES: Partially seen right-sided CABLE COVERER shunt overlying the right hemithorax and coursing into the upper abdomen which appears intact without evidence of kinking or discontinuity. LUNGS: Lungs are well inflated. Mild patchy right basilar opacity, likely atelectasis. There is no evidence of pneumonia or pulmonary edema. PLEURA: No pleural effusion or pneumothorax. HEART AND MEDIASTINUM: The cardiomediastinal silhouette is unremarkable. Atherosclerotic calcification of the aortic arch. BONES AND SOFT TISSUES: There is mild age indeterminate loss of vertebral body height loss at the T12 level. UPPER ABDOMEN: No free air under the diaphragm. IMPRESSION: Clear lungs. Mild age indeterminate loss of vertebral body height at the T12 level. Signed by: Dr. Anatoliy Caraballo MD on 12/22/2018 11:12 AM Dictated By: ANATOLIY CARABALLO MD 111 Transcribed By: URSULA on 12/22/18 111 COPY TO: AYDEN AVILA MD ABDOMEN-1VIEW (KUB) 2018-10-01 14:30:00 [place] [address] Patient Name: LENORA BUNN MR #: [id number] : 1950 Age/Sex: 68/M Req #: [id number] Adm Physician: Ordered by: AYDEN AVILA MD Report #: [id number] Location: [facility] Room/Bed: Procedure: [id number] DX/ABDOMEN-1VIEW (KU) Exam Date: 10/01/18 Exam Time: 1307 REPORT STATUS: Signed Exam: Abdominal film Clinical History: Calculus o f kidney Comparison: KUB 09/09/18. DISCUSSION: Partially visualized ventriculoperitoneal shunt catheter terminates over the right upper quadrant of the abdomen. No evidence of kinking. Non-obstructive bowel gas pattern. There are multiple coarse pelvic calcifications. Some of the calcifications are no longer present and additional ones have changed position from the prior KUB on 09/09/18. No calcifications project over the renal shadows or expected course of the ureters. No acute bony findings. IMPRESSION: Multiple calcifications projecting over the pelvis some of which have changed position from the prior study and others of which are resolved. Findings likely reflect bladder calculi and possibly additional pelvic phleboliths. No calcifications project over the renal shadows. Partially seen CABLE COVERER shunt catheter terminates in the right upper quadrant abdomen. Signed by: Dr. Anatoliy Caraballo MD on 10/01/2018 2:36 PM Dictated By: ANATOLIY CARABALLO MD 1436 Transcribed By: URSULA on 10/01/18 1436 COPY TO: AYDEN AVILA MD ABDOMEN-1VIEW (KUB) 2018-09-09 11:43:00 [place] [address] Patient Name: LENORA BUNN MR #: [id number] : 1950 Age/Sex: 68/M Req #: [id number] Adm Physician: Ordered by: AYDEN AVILA MD Report #: [id number] Location: [facility] Room/Bed: Procedure: [id number] DX/ABDOMEN-1VIEW (KUB) Exam Date: 09/09/18 Exam Time: 1128 REPORT STATUS: Signed Exam: Abdominal film Clinical History: Calculu s of kidney Comparison: None. DISCUSSION: Partially visualized ventriculoperitoneal shunt catheter terminates over the right upper quadrant of the abdomen. Bowel gas pattern shows no dilated, air-filled loops of bowel. No mass effect or organomegaly. Radiopaque catheter projects over the urinary bladder. There are multiple coarse pelvic calcifications which may reflect phleboliths or bladder calculi. No calcifications project over the renal shadows or expected ureteral courses. Regional skeletal structures are intact. IMPRESSION: Urinary bladder catheter in position as above. Multiple pelvic phleboliths versus bladder calculi. No calcifications project over the renal shadows. Signed by: Dr. Navdeep Camarillo M.D. on 09/09/2018 11:45 AM Dictated By: NAVDEEP CAMARILLO MD 1145 Transcribed By: URSULA on 09/09/18 1145 COPY TO: AYDEN AVILA MD
[2018-12-24 10:00] VITALS: BP 175/80
--- NOTE | 2018-12-24 18:54 | Operative Report ---
DATE OF PROCEDURE: 12/24/2018 SURGEON: Edmond Resendez MD PREOPERATIVE DIAGNOSES: 1. Urethral stricture disease. 2. Left renal calculus. 3. Left hydronephrosis. POSTOPERATIVE DIAGNOSES: 1. Urethral stricture disease. 2. Left renal calculus. 3. Left hydronephrosis. PROCEDURE: 1. Retrograde urethrogram (Entirely separate procedure for urethral stricture disease). 2. Cystourethroscopy with calibration and dilation of urethral stricture (Entirely separate procedure for urethral stricture disease). 3. Left-sided ureteroscopy with dilation of ureteral stricture (Entirely separate procedure for urethral stricture). 4. Cystourethroscopy with insertion of left indwelling stent (Entirely separate procedure for the diagnosis of left hydronephrosis). 5. Supervision of fluoroscopy for ureteroscopy portion. 6. Supervision of fluoroscopy for stent placement. ANESTHESIA: General. ESTIMATED BLOOD LOSS: Minimal. COMPLICATIONS: None. INDICATION FOR PROCEDURE: Mr. Lyn is a very pleasant 68-year-old male with a history of severe urethral stricture disease, ureteral calculus and hydronephrosis. He and I had a long discussion about alternatives, the risks and the benefits, he elected to proceed with urethral dilation and stent placement. He voiced understanding of the options, alternatives, and risks and benefits and he elected to proceed. DESCRIPTION OF PROCEDURE: After informed consent was obtained, the patient was taken to the operating suite. He was placed supine on the operating table. He underwent general anesthesia by the anesthesia service. Was placed in the dorsal lithotomy position, and sterilely prepped and draped for cystoscopy. Cystoscope was inserted until the bulbar_ urethral stricture was seen. There were multiple focal strictures. Despite multiple attempts, could not get the filiform to feed into the bladder. At this time, the ureteroscope was advanced under direct vision to the bladder dilating the urethra. The filiform was introduced through the ureteroscope and seen to coil in the bladder under both direct vision and fluoroscopy. Followers then utilized to dilate this. Scope was then reintroduced. With moderate difficulty, ureteroscope was advanced through the ureteral stricture until the guidewire could be advanced proximally. It was seen to coil at the level of the renal pelvis on the left side. At this time, ureteral stent was deployed with a coil in the renal pelvis and a coil in the patient's bladder utilizing the filiform and a hughes-tip catheter was inserted over the filiform. Clear urine was returned. The balloon was inflated. The bladder was drained. The patient was awakened from anesthesia and transported to the recovery room in excellent condition with no untoward side effects noted. Supervision of fluoroscopy, interpretation of retrograde ureterography: I was present and I supervised fluoroscopy for both ureteroscopy and cystoscopy portions. A retrograde urethrogram was performed revealing normal distal ureter, multifocal bulbar proximal strictures, Ugalde catheter in adequate position in the bladder. MD ALEXA Dickey/MODL /[id number] MTDD
== END | disposition home or self-care (01) ==
LOC: OR 06:23
PROVIDERS: ATTEND Urology
DX: N35.912 Unspecified bulbous urethral stricture, male (principal); N20.0 Calculus of kidney; N20.1 Calculus of ureter; N13.30 Unspecified hydronephrosis; N28.1 Cyst of kidney, acquired; N39.0 Urinary tract infection, site not specified; N40.1 Benign prostatic hyperplasia with lower urinary tract symptoms; N13.8 Other obstructive and reflux uropathy; I10 Essential (primary) hypertension; Z01.810 Encounter for preprocedural cardiovascular examination; Z01.812 Encounter for preprocedural laboratory examination; Z01.818 Encounter for other preprocedural examination; Z87.891 Personal history of nicotine dependence
CPT/HCPCS: 36415; 52332; 71046; 74420; 85025; 93005; J0696; J1100; J2001; J2270; J2405; J2704; Q9967